=== PATIENT | male | born 1940 | race Caucasian/White ===

== ENCOUNTER 2016-11-22 18:19 | Inpatient (IN) | payer MEDICARE, OTHER ==
[~2016-11-22] VITALS: Ht 193 cm; Wt 111.6 kg
[2016-11-22] VITALS (7 sets, daily range): BP systolic 151–168; BP diastolic 80–100
[2016-11-22] MEDS ORDERED: AMIODARONE 150 MG/3 ML VIAL ONE (18:31)
[2016-11-22] MEDS ORDERED: ETOMIDATE 20 MG/10 ML VIAL. IV ONE (18:34)
[2016-11-22 18:45] LABS: POTASSIUM ISTAT 3.5 mmol/L (3.5-5.0)
[2016-11-22] MEDS ORDERED: AMIODARONE 900 MG in IV DEXTROSE 5% 500 ML IV PRN (18:45)
[2016-11-22] MEDS ORDERED: AMIODARONE 150 MG in IV DEXTROSE 5% 100 ML IV ONE (18:45)
[2016-11-22 18:47] LABS: BASO # 0.1 x10^3/uL (0.0-0.2); BASO % 1 % (0-3); EOS % 6 % (0-3); HEMOGLOBIN 15.1 g/dL (13.0-17.5); LYMPH # 2.6 x10^3/uL (1.0-4.8); LYMPH % 23 % (24-48); MEAN CORPUSCULAR HEMOGLOBIN 32 pg (25-35); MEAN CORPUSCULAR HGB CONC 34 g/dL (31-37); MEAN CORPUSCULAR VOLUME 92 fL (79-100); MONO % 11 % (0-9); NEUT % 60 % (31-73); PLATELET COUNT 235 x10^3/uL (140-400); RED BLOOD COUNT 4.79 x10^6/uL (4.30-5.70); RED CELL DISTRIBUTION WIDTH 13.2 % (11.5-14.5); WHITE BLOOD COUNT 11.5 x10^3/uL (4.0-11.0)
[2016-11-22 18:59] LABS: CREATININE 1.8 mg/dL (0.7-1.3); POTASSIUM 3.4 mmol/L (3.5-5.1)
[2016-11-22] MEDS ORDERED: dilTIAZem IV PUSH 25 MG/5 ML VIAL IVP ONE (19:00)
[2016-11-22 19:04] LABS: ALBUMIN 4.3 g/dL (3.4-5.0); ALBUMIN/GLOBULIN RATIO 1.4 (1.0-1.7); MAGNESIUM 2.6 mg/dL (1.8-2.4); TOTAL BILIRUBIN 1.1 mg/dL (0.2-1.0); TOTAL PROTEIN 7.3 g/dL (6.4-8.2)
[2016-11-22] MEDS ORDERED: HEPARIN for IV BOLUS 10,000 UNIT/10 ML VIAL. IV PRN (19:15)
[2016-11-22] MEDS ORDERED: ONDANSETRON PF 4 MG/2 ML VIAL. IV PRN (19:15)
[2016-11-22] MEDS ORDERED: IV NORMAL SALINE 1000ML BAG 1,000 ML IV ONE (19:15)
[2016-11-22] MEDS: HEPARIN 25,000UTS/500ML PREMIX 500 ML IV PRN (19:24)
--- NOTE | 2016-11-22 19:31 | ED.ADGEN ---
Past Medical History Past Medical History: Asthma, Diabetes-Type II, High Cholesterol Additional Past Medical Histor: AORTIC VALVE Past Surgical History: Cholecystectomy Additional Information: CIGAR (1 PER DAY) Alcohol Use: None Drug Use: None Adult General Chief Complaint Chief Complaint: Fatigue HPI HPI Patient is a 76 year old [place] history of hypertension and abdominal aneurysm who presents by private vehicle with fatigue and mild dyspnea. Triage EKG shows wide complex tachycardic rhythm, rate 179 concerning for V. tach versus other arrhythmia. Patient denies chest pain, back pain, abdominal pain, palpitations dizziness or lightheadedness. Symptoms began earlier this afternoon. Denies history of CAD, cardiac arrhythmia or cardiomyopathy. He is not on anticoagulation therapy. Patient noted to be hypertensive, and systolic of 200s over 110. Patient compliant with medical therapy. 6 accompanied at bedside by his spouse and daughter. Review of Systems Review of Systems Review symptoms as per history of present illness. Current Medications Current Medications Current Medications Medications (Trade) Dose Ordered Sig/Tonya Start Time Stop Time Status Last Admin Dose Admin Amiodarone HCl (Cordarone) 150 mg STK-MED ONCE 11/22/16 18:31 11/22/16 18:32 DC Amiodarone HCl 150 mg/Dextrose 103 ml @ 618 mls/hr 1X ONCE 11/22/16 18:45 11/22/16 18:54 DC 11/22/16 18:50 618 MLS/HR Amiodarone HCl 900 mg/Dextrose 518 ml @ 34.53 mls/ hr CONT PRN 11/22/16 18:45 Diltiazem HCl (Cardizem) 10 mg 1X ONCE 11/22/16 19:00 11/22/16 19:01 DC 11/22/16 18:50 10 MG Diltiazem HCl 125 mg/Dextrose 125 ml @ 0 mls/hr CONT PRN 11/22/16 19:00 11/22/16 18:56 5 MLS/HR Etomidate (Amidate) 20 mg STK-MED ONCE 11/22/16 18:34 11/22/16 18:35 DC Heparin Sodium (Porcine) (Heparin Sodium) 2,850 unit PRN Q6HRS PRN 11/22/16 19:15 Heparin Sodium/ Dextrose 500 ml @ 0 mls/hr CONT PRN 11/22/16 19:15 Ondansetron HCl (Zofran) 4 mg PRN Q8HRS PRN 11/22/16 19:15 11/23/16 19:14 UNV Sodium Chloride 1,000 ml @ 1,000 mls/hr 1X ONCE 11/22/16 19:15 11/22/16 20:14 11/22/16 19:11 1,000 MLS/HR Allergies Allergies Allergies Coded Allergies Type Severity Reaction Last Updated Verified No Known Drug Allergies 11/22/16 No Physical Exam Physical Exam Constitutional: Well developed, well nourished, no acute distress. HENT: Normocephalic, atraumatic, bilateral external ears normal, oropharynx moist, no oral exudates, nose normal. Eyes: PERRLA, EOMI, conjunctiva normal. Neck: Normal range of motion. Cardiovascular: Tachycardic. Negative Homans signs. Lungs & Thorax: Respirations nonlabored, lung sounds clear. Abdomen: Bowel sounds normal, soft, no tenderness. Skin: Warm, dry. Back: No tenderness, no CVA tenderness. Extremities: No tenderness, no edema Neurologic: Alert and oriented X 3, normal motor function, normal sensory function, no focal deficits noted. Psychologic: Affect normal, judgement normal, mood normal. Current Patient Data Vital Signs Vital Signs Date Time Temp Pulse Resp B/P (MAP) Pulse Ox O2 Delivery O2 Flow Rate FiO2 11/22/16 18:50 87 144/77 11/22/16 18:30 98.8 20 97 Room Air 98.8 Lab Values Laboratory Tests Test 11/22/16 18:28 11/22/16 18:32 11/22/16 18:41 White Blood Count 11.5 x10^3/uL (4.0-11.0) H Red Blood Count 4.79 x10^6/uL (4.30-5.70) Hemoglobin 15.1 g/dL (13.0-17.5) Hematocrit 44.0 % (39.0-53.0) Mean Corpuscular Volume 92 fL (79-100) Mean Corpuscular Hemoglobin 32 pg (25-35) Mean Corpuscular Hemoglobin Concent 34 g/dL (31-37) Red Cell Distribution Width 13.2 % (11.5-14.5) Platelet Count 235 x10^3/uL (140-400) Neutrophils (%) (Auto) 60 % (31-73) Lymphocytes (%) (Auto) 23 % (24-48) L Monocytes (%) (Auto) 11 % (0-9) H Eosinophils (%) (Auto) 6 % (0-3) H Basophils (%) (Auto) 1 % (0-3) Neutrophils # (Auto) 6.8 x10^3uL (1.8-7.7) Lymphocytes # (Auto) 2.6 x10^3/uL (1.0-4.8) Monocytes # (Auto) 1.2 x10^3/uL (0.0-1.1) H Eosinophils # (Auto) 0.7 x10^3/uL (0.0-0.7) Basophils # (Auto) 0.1 x10^3/uL (0.0-0.2) Sodium Level 144 mmol/L (136-145) Potassium Level 3.4 mmol/L (3.5-5.1) L Chloride Level 103 mmol/L (98-107) Carbon Dioxide Level 31 mmol/L (21-32) Anion Gap 10 (6-14) 16 mmol/L (6-14) H Blood Urea Nitrogen 30 mg/dL (8-26) H Creatinine 1.8 mg/dL (0.7-1.3) H Estimated GFR (Cockcroft-Gault) 37.0 BUN/Creatinine Ratio 17 (6-20) Glucose Level 145 mg/dL (70-99) H 145 mg/dL (70-99) H Calcium Level 9.0 mg/dL (8.5-10.1) Magnesium Level 2.6 mg/dL (1.8-2.4) H Total Bilirubin 1.1 mg/dL (0.2-1.0) H Aspartate Amino Transferase (AST) 17 U/L (15-37) Alanine Aminotransferase (ALT) 26 U/L (16-63) Alkaline Phosphatase 62 U/L (46-116) Total Protein 7.3 g/dL (6.4-8.2) Albumin 4.3 g/dL (3.4-5.0) Albumin/Globulin Ratio 1.4 (1.0-1.7) POC Troponin I 0.00 ng/ml (<0.08) POC Hemoglobin 14.6 g/dL (14-18) POC Hematocrit 43 % (37-52) POC Sodium 140 mmol/L (135-145) POC Potassium 3.5 mmol/L (3.5-5.0) POC Chloride 101 mmol/L (98-110) POC Total CO2 27 mmol/L (23-32) POC Blood Urea Nitrogen 29 mg/dL (8-26) H POC Creatinine 1.7 mg/dL (0.5-1.4) H POC Ionized Calcium (Jovani) 1.10 mmol/L (1.13-1.32) L Laboratory Tests 11/22/16 18:28 Laboratory Tests 11/22/16 18:28 11/22/16 18:41 EKG EKG [EKG #1, irregular rhythm with complex rhythm, rate 179, QTC 502. Rhythm consistent with A. fib with RVR versus V. tach per Dr. Lindsey. EKG #2, EKG #2 normal sinus rhythm, rate 95, frequent PVCs, no acute ST-T wave changes, LVH, left axis deviation. QTc 451. Radiology/Procedures Radiology/Procedures [Chest x-ray: No acute cardiopulmonary disease preliminary view.] Course & Med Decision Making Course & Med Decision Making Pertinent Labs and Imaging studies reviewed. (See chart for details) [Patient hypertensive with wide complex tachyarrhythmia initially concerning for V. tach. Tachyarrhythmia oscillates with no sinus rhythm ith frequent PVCs. Patient given amiodarone 150 mg bolus x2 with limited response. Patient placed on amiodarone drip. EKGs, labs reviewed in detail with Dr. Lindsey on-call for cardiology. Recommendations are for Cardizem dose, drip, heparin drip, and continue amiodarone which is already started. Tachyarrhythmia arrhythmia responsive to Cardizem, converting patient to sinus rhythm. Blood pressure improved. IVF given for hydration. Dr. Rogers to admit. Abraham Disclaimer Dragon Disclaimer This electronic medical record was generated, in whole or in part, using a voice recognition dictation system. MORRIS NATARAJAN DO Nov 22, 2016 19:31
[2016-11-22] MEDS ORDERED: NON FORMULARY ITEM (Pravastatin Sodium 1 TAB) PO SCH (21:00)
[2016-11-22] MEDS ORDERED: HYDR-2869 PO (21:52)
[2016-11-22] MEDS ORDERED: PRAV20TA2 PO (21:53)
[2016-11-22] MEDS ORDERED: VIT1CAPS12 PO (21:53)
[2016-11-22] MEDS: MULTIVITAMIN I-VITE TABLET. PO SCH (22:43)
[2016-11-22] MEDS: ATORVASTATIN CALCIUM 10 MG TABLET. PO SCH (22:44)
[2016-11-23] VITALS (17 sets, daily range): BP systolic 132–176; BP diastolic 69–99
[2016-11-23] MEDS ORDERED: HYDROcodone/APAP 5/325MG 1 TAB TABLET PO PRN (00:15)
[2016-11-23] MEDS ORDERED: ACETAMINOPHEN 325 MG TABLET. PO PRN (00:15)
[2016-11-23] MEDS ORDERED: ONDANSETRON PF 4 MG/2 ML VIAL. IV PRN (00:15)
[2016-11-23] MEDS ORDERED: hydrALAZINE 20 MG/ML VIAL. IVP PRN ×2 (00:15→12:00)
[2016-11-23] MEDS ORDERED: ALBUTEROL SULFATE 2.5 MG/3 ML NEBU. NEB PRN (00:15)
[2016-11-23 06:27] LABS: BASO # 0.1 x10^3/uL (0.0-0.2); BASO % 1 % (0-3); EOS % 7 % (0-3); HEMATOCRIT 43.3 % (39.0-53.0); HEMOGLOBIN 15.4 g/dL (13.0-17.5); LYMPH # 1.6 x10^3/uL (1.0-4.8); LYMPH % 21 % (24-48); MEAN CORPUSCULAR HEMOGLOBIN 32 pg (25-35); MEAN CORPUSCULAR HGB CONC 36 g/dL (31-37); MEAN CORPUSCULAR VOLUME 90 fL (79-100); MONO % 10 % (0-9); NEUT % 62 % (31-73); PLATELET COUNT 193 x10^3/uL (140-400); RED CELL DISTRIBUTION WIDTH 12.7 % (11.5-14.5)
[2016-11-23 06:40] LABS: ALBUMIN 4.2 g/dL (3.4-5.0); ALBUMIN/GLOBULIN RATIO 1.4 (1.0-1.7); CALCIUM 8.9 mg/dL (8.5-10.1); CREATININE 1.4 mg/dL (0.7-1.3); GFR 49.4; TOTAL BILIRUBIN 1.4 mg/dL (0.2-1.0); TOTAL PROTEIN 7.1 g/dL (6.4-8.2)
--- NOTE | 2016-11-23 06:40 | ACF ---
Admission Forms Criteria CARDIOLOGY GRG Clinical Indications for Admission to Inpatient Care ( Place 'X' for any and all applicable criteria): Hospital admission is needed for appropriate care of the patient because of ANY ONE of the following (1): [ ] I. Hemodynamic instability as indicated by ALL of the following (1)(2)(3) (4)(5) [ ]a) Vital signs or other findings not as expected for chronic patient condition or baseline [ ]b) Instability indicated by ANY ONE of the following: [ ]i) Hypotension [ ]ii) Symptomatic Tachycardia unresponsive to treatment ( e.g., analgesia, fluids, sedation as indicated) [ ]iii) Inadequate perfusion indicated by ANY ONE of the following: [ ] 1) Lactic acidosis (> 2 mmol/L) [ ] 2) New abnormal capillary refill (> 3 seconds) [ ] 3) Reduced urine output [ ] 4) New altered mental status [ ]iv) Orthostatic vital sign changes unresponsive to treatment (e.g., fluids) [ ]v) IV inotropic or vasopressor medication required to maintain adequate blood pressure or perfusion [ ] II. Severe heart failure as indicated by ANY ONE of the following(17)(18) [ ]a) Respiratory distress [ ]b) Hypotension [ ]c) Anasarca (refractory to outpatient therapy) [ ]d) Cardiac arrhythmias of immediate concern [ ]e) Myocardial ischemia [ ] III. Cardiac arrhythmias or findings of immediate concern indicated by ANY ONE of the following (19)(20): [ ] a) Heart rhythms that are inherently dangerous or unstable indicated by ANY ONE of the following (21)(22)(23): [ ] i) Resuscitated ventricular fibrillation or cardiac arrest [ ] ii) Ventricular escape rhythm [ ] iii) Sustained ventricular tachycardia (30 seconds or more of ventricular rhythm at greater than 100 beats per minute) [ ] iv) Nonsustained ventricular tachycardia and ANY ONE of the following: [ ] 1) Suspected cardiac ischemia as cause or consequence of ventricular tachycardia [ ] 2) In setting of acute myocarditis [ ] b) Unstable cardiac conduction defects indicated by ANY ONE of the following(23)(24)(25) [ ] i) Type II second-degree atrioventricular block [ ]ii) Third-degree atrioventricular block [ ]iii) New-onset left bundle branch block with suspected myocardial ischemia [ ]c) Any heart rhythm and ANY ONE of the following (21)(22)(26)(27) (28) [ ] i) Continuous long-term ECG monitoring needed (e.g., initiation of drug requiring monitoring for more than 24 hours) [ ] ii) Patient has automatic implanted cardioverter defibrillator that is repeatedly firing, malfunctioning, or in need of immediate adjustment of settings beyond the scope of ambulatory or observation care [ ]d) Heart rhythms of concern due to ANY ONE of the following: [ ] i) Hypotension [ ] ii) Respiratory distress [ ] iii) Association with other significant symptoms (e.g., bradycardia with syncope or ongoing dizziness, supraventricular tachycardia with chest pain (14)(15)(17) [ ] IV. Monitoring for cardiac contusion beyond the scope of observation care needed [A](30)(31)(32) [ ] V. Surgical or device complication (e.g., valve replacement complication , pacemaker dysfunction) (35)(41)(44)(45)(46) [ ] . Inpatient palliative care needed. [B](49) Also use Inpatient Palliative Care Criteria [ ] VII. Nonbacterial thrombotic (marantic) endocarditis (36)(43)(47)(48) [X] VIII. Cardiology condition, symptom, or finding for which emergency and observation care has failed or are not considered appropriate. [ ] IX. Acute valvular disease requiring inpatient as indicated by ANY ONE of the following (41) [ ]a) Acute valvular regurgitation (42) [ ]b) Noninfectious valvulitis (43) [ ]c) Obstructive valve thrombosis [ ]d) Paravalvular leak [ ]e) Other significant valvular disorder remaining after emergency or observation level of care (as appropriate) [ ]X. Pericardial disease requiring inpatient treatment as indicated by ANY ONE of the following (33)(34)(35)(36)(37) [ ]a) Suspected tamponade (38)(39)(40) [ ]b) Hemopericardium [ ]c) Other significant pericardial disorder remaining after emergency or observation level of care (as appropriate) [ ] XI. Cardiac ischemia beyond scope of emergency and observation care. [ ] XII. Hypertension requiring inpatient treatment as indicated by ANY ONE of the following (6)(7)(8) [ ]a) SBP greater than 220 mm Hg or DBP greater than 120 mmHg despite treatment [ ]b) SBP greater than 140 mm Hg or DBP greater than 100 mm Hg with evidence of acute end organ damage as indicated by ANY ONE of the following [ ] i) Encephalopathy [ ] ii) Acute renal failure as indicated by new onset of ANY ONE of the following (9)(10)(11)(12)(13) [ ]1) 3-fold rise in serum creatinine from baseline [ ]2) Serum creatinine greater than 4 mg/dL ( 354 micromoles/L) with acute rise greater than 0.5 mg/dL (44.2 micromoles/L) [ ]3) Reduction of more than 75% in estimated glomerular filtration rate from baseline [ ]4) Estimated glomerular filtration rate less than 35 mL/min/1.73m2 (0.59 mL/sec/1.73m2) in child up to 18 years of age [ ]5) Cessation of urine output indicated by ALL of the following [ ]A. Adequate volume status [ ]B. Inadequate urine output as indicated by ANY ONE of the following [ ]a. Urine output less than 0.3 mL/kg/hr for 24 hours [ ]b. Anuria (urine output less than 0.1 mL/kg/hr) for 12 hours [ ] iii) Aortic dissection [ ] iv) Myocardial Ischemia [ ] v) Left ventricular heart failure [ ]vi) Retinal Hemorrhage [ ]vii) Other significant finding [ ]c) Hypertension in child requiring inpatient treatment as indicated by ALL of the following(14)(15)(16) [ ] i) Outpatient treatment not effective, not available, or not appropriate [ ]ii) SBP or DBP greater than 95th percentile for age [ ]iii) Evidence of acute end organ damage as indicated by ANY ONE of the following [ ]1) Altered mental status [ ]2) Acute renal failure as indicated by new onset of ANY ONE of the following(9)(10)(11)(12)(13) [ ]A. 3-fold rise in serum creatinine from baseline [ ]B. Serum creatinine greater than 4 mg/dL (354 micromoles/L) with acute rise greater than 0.5 mg/dL (44.2 micromoles/L) [ ]C. Reduction of more than 75% in estimated glomerular filtration rate from baseline [ ]D. Estimated glomerular filtration rate less than 35 mL/min/1.73m2 (0.59 mL/sec/1.73m2) in child up to 18 years of age [ ]E. Cessation of urine output indicated by ALL of the following [ ]a. Adequate volume status [ ]b. Inadequate urine output as indicated by ANY ONE of the following [ ]i) Urine output less than 0.3 mL/kg/hr for 24 hours [ ]ii) Anuria ( urine output less than 0.1 mL/kg/hr) for 12 hours [ ]3) Severe headache [ ]4) Visual disturbance [ ]5) Retinal hemorrhage [ ]6) Other significant finding [ ]XIII. Complications of transplanted heart indicated by ANY ONE of the following(61): [ ]a) Acute graft rejection requiring inpatient management (eg, intravenous immunosuppression)(62)(63) [ ]b) Acute graft heart failure indicated by ANY ONE of the following(64): [ ]i) Hemodynamic instability [ ]ii) Cardiac arrhythmias of immediate concern [ ]iii) Pulmonary edema that is very severe (eg, mechanical ventilation needed, imminent or likely, need for 100% oxygen to keep oxygen saturation above 90%) [ ]iv) Pulmonary edema that is persistent as indicated by ALL of the following: [ ]1) New need for oxygen therapy to keep oxygen saturation above 90% (or increased FiO2 need from baseline) [ ]2) Has not improved sufficiently with emergency department or observation care IV diuretics or other heart failure treatments[E] [ ]v) Altered mental status that is severe or persistent [ ]vi) Increased creatinine (new on laboratory test) with reduction of more than 50% in estimated glomerular filtration rate from baseline [ ]vii) Progressively (ongoing) rising creatinine (known from past laboratory test) with reduction of more than 25% in estimated glomerular filtration rate from baseline [ ]viii) Acute renal failure [ ]ix) Acute peripheral ischemia (eg, examination shows pulseless, cool, mottled, or cyanotic extremity) [ ]x) Pulmonary artery catheter monitoring needed [ ]xi) Other sign or symptom of heart failure requiring inpatient treatment (ie, too severe or not responsive to outpatient and observation care treatment) [ ]c) Infection requiring inpatient management (eg, Hemodynamic instability, need for intravenous antimicrobial treatment)(66)(67)(68)(69)(70) [ ]d) Cardiac allograft vasculopathy requiring inpatient management ( eg evidence of cardiac ischemia)(71) [ ]e) Other complication of transplanted heart (eg, stroke, severe pulmonary hypertension, severe valvular dysfunction) requiring inpatient management(72) The original [facility] content created by [facility] has been revised. The portions of the content which have been revised are identified through the use of italic text or in bold, and [facility] has neither reviewed nor approved the modified material. All other unmodified content is copyright [facility]. Please see references footnoted in the original [facility] edition 2016 Admission Criteria Met?: Yes UDAY DECKER Nov 23, 2016 06:40
[2016-11-23] MEDS ORDERED: FEXO180T16 PO (06:42)
[2016-11-23] MEDS ORDERED: GLUC1CAP48 PO (06:42)
[2016-11-23] MEDS ORDERED: FLUT1DIS3 IH (06:42)
[2016-11-23] MEDS ORDERED: TRIA1CAP3 PO (06:42)
[2016-11-23] MEDS ORDERED: AMLO10TA2 PO (06:42)
[2016-11-23] MEDS ORDERED: ATEN100T PO (06:42)
[2016-11-23] MEDS ORDERED: TELM80TA PO (06:42)
[2016-11-23] MEDS ORDERED: CLON0.3T PO (06:42)
[2016-11-23] MEDS ORDERED: MULT-252 PO (06:42)
[2016-11-23] MEDS ORDERED: POTA20TA82 PO (06:42)
[2016-11-23] MEDS ORDERED: ALBU2.5V14 NEB (06:42)
[2016-11-23] MEDS ORDERED: METF-620 PO (06:42)
[2016-11-23] MEDS ORDERED: MOME17SP NS (06:42)
[2016-11-23] MEDS: MULTIVITAMIN I-VITE TABLET. PO SCH ×2 (08:17→20:59)
--- NOTE | 2016-11-23 08:55 | RAD ---
EXAM: Chest one view. HISTORY: Chest pain. COMPARISON: None. FINDINGS: A frontal view of the chest is obtained. There are no confluent infiltrates. There is no pneumothorax or pleural effusion. The heart is moderately enlarged. There are atherosclerotic calcifications of the aorta. IMPRESSION: 1. Moderate cardiomegaly.
--- NOTE | 2016-11-23 10:42 | PDOC2 ---
EMA LANDRY TECHNICAL SERVICES MANAGER 11/23/16 1042: CARDIAC CONSULT DATE OF CONSULT Date of Consult DATE: 11/23/16 TIME: 10:36 REASON FOR CONSULT Reason for Consult: Arrhythmia REFERRING PHYSICIAN Referring Physician: Luisito SOURCE Source: Chart review HISTORY OF PRESENT ILLNESS HISTORY OF PRESENT ILLNESS This is a pleasant 76 yo male admitted for complains of chest pain. Pt came from [place] and was visiting her daughter here. He typically sees a labor relations consultant over there. This started before noon yesterday intermittent then accelerated around 2 PM. At that time the pain was more severe with dull nagging discomfort 7 out of 10 pain scale that radiated midback. 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 His CP was on and off sometimes lasting about 30 minutes then became constant. No associated nausea, diaphoresis nor sensation of palpitations. No significant SOA as well. He does experience some dyspnea on exertion prior to this happening and this has been happening intermittently for a while. Denies any prior CAD and had a stress test 09/2015 and was told to be normal. He also had TTE 09/2016 and no changes as told to him by his labor relations consultant. PAST MEDICAL HISTORY Cardiovascular: HTN, Hyperlipidemia, Valve insufficiency Pulmonary: Asthma, Pneumonia CENTRAL NERVOUS SYSTEM: Other (No pertinent history) GI: GERD Heme/Onc: No pertinent hx Hepatobiliary: No pertinent hx Psych: No pertinent hx Musculoskeletal: Osteoarthritis Rheumatologic: No pertinent hx Infectious disease: No pertinent hx ENT: No pertinent hx Renal/: Chronic renal insuff Endocrine: Diabetes (2) Dermatology: No pertinent hx PAST SURGICAL HISTORY Past Surgical History: Cholecystectomy FAMILY HISTORY Family History: Heart Disease SOCIAL HISTORY Smoke: # pack years (1 cigar a day) ALCOHOL: occassional Drugs: None Lives: with Family CURRENT MEDICATIONS CURRENT MEDICATIONS Current Medications Medications (Trade) Dose Ordered Sig/Tonya Route PRN Reason Start Time Stop Time Status Last Admin Dose Admin Amiodarone HCl 150 mg/Dextrose 103 ml @ 618 mls/hr 1X ONCE IV 11/22/16 18:45 11/22/16 18:54 DC 11/22/16 18:50 Diltiazem HCl (Cardizem) 10 mg 1X ONCE IVP 11/22/16 19:00 11/22/16 19:01 DC 11/22/16 18:50 Diltiazem HCl 125 mg/Dextrose 125 ml @ 0 mls/hr CONT PRN IV SEE I/O RECORD 11/22/16 19:00 11/23/16 09:58 Sodium Chloride 1,000 ml @ 1,000 mls/hr 1X ONCE IV 11/22/16 19:15 11/22/16 20:14 DC 11/22/16 19:11 Heparin Sodium/ Dextrose 500 ml @ 0 mls/hr CONT PRN IV SEE I/O RECORD 11/22/16 19:15 11/22/16 19:24 Hydralazine HCl (Apresoline) 50 mg TID PO 11/22/16 23:00 11/23/16 08:17 Atorvastatin Calcium (Lipitor) 5 mg QHS PO 11/22/16 23:00 11/22/16 22:44 Multivitamins/ Minerals (I-Angy) 1 tab BID PO 11/22/16 23:00 11/23/16 08:17 ALLERGIES ALLERGIES: Coded Allergies: apple (Verified Allergy, Severe, Swelling, 11/22/16) APPLE PEELS monosodium glutamate (Verified Allergy, Severe, Anaphylaxis, 11/22/16) ROS Review of System 14 point ROS evaluated with pertinent positives noted per HPI PHYSICAL EXAM General: Alert, Oriented X3, Cooperative, No acute distress HEENT: Atraumatic, Mucous membr. moist/pink Lungs: Clear to auscultation Heart: Regular rate (SR with intermittent PVCs), Normal S1, Normal S2 Abdomen: Soft, No tenderness Extremities: No cyanosis, Other (trace LE edema) Skin: No breakdown, No significant lesion Neuro: Normal speech, Sensation intact Psych/Mental Status: Mental status NL, Mood NL MUSCULOSKELETAL: No joint tenderness, Osteoarthritic changes both hands VITALS VITALS Vital Signs Date Time Temp Pulse Resp B/P (MAP) Pulse Ox O2 Delivery O2 Flow Rate FiO2 11/23/16 10:06 69 21 142/76 (98) 98 Nasal Cannula 2.0 11/23/16 07:00 98.2 98.2 LABS Lab: Laboratory Tests Test 11/22/16 18:28 11/22/16 18:32 11/22/16 18:41 11/23/16 00:45 White Blood Count 11.5 x10^3/uL (4.0-11.0) Red Blood Count 4.79 x10^6/uL (4.30-5.70) Hemoglobin 15.1 g/dL (13.0-17.5) Hematocrit 44.0 % (39.0-53.0) Mean Corpuscular Volume 92 fL (79-100) Mean Corpuscular Hemoglobin 32 pg (25-35) Mean Corpuscular Hemoglobin Concent 34 g/dL (31-37) Red Cell Distribution Width 13.2 % (11.5-14.5) Platelet Count 235 x10^3/uL (140-400) Neutrophils (%) (Auto) 60 % (31-73) Lymphocytes (%) (Auto) 23 % (24-48) Monocytes (%) (Auto) 11 % (0-9) Eosinophils (%) (Auto) 6 % (0-3) Basophils (%) (Auto) 1 % (0-3) Neutrophils # (Auto) 6.8 x10^3uL (1.8-7.7) Lymphocytes # (Auto) 2.6 x10^3/uL (1.0-4.8) Monocytes # (Auto) 1.2 x10^3/uL (0.0-1.1) Eosinophils # (Auto) 0.7 x10^3/uL (0.0-0.7) Basophils # (Auto) 0.1 x10^3/uL (0.0-0.2) Sodium Level 144 mmol/L (136-145) Potassium Level 3.4 mmol/L (3.5-5.1) Chloride Level 103 mmol/L (98-107) Carbon Dioxide Level 31 mmol/L (21-32) Anion Gap 10 (6-14) 16 mmol/L (6-14) Blood Urea Nitrogen 30 mg/dL (8-26) Creatinine 1.8 mg/dL (0.7-1.3) Estimated GFR (Cockcroft-Gault) 37.0 BUN/Creatinine Ratio 17 (6-20) Glucose Level 145 mg/dL (70-99) 145 mg/dL (70-99) Calcium Level 9.0 mg/dL (8.5-10.1) Magnesium Level 2.6 mg/dL (1.8-2.4) Total Bilirubin 1.1 mg/dL (0.2-1.0) Aspartate Amino Transf (AST/SGOT) 17 U/L (15-37) Alanine Aminotransferase (ALT/SGPT) 26 U/L (16-63) Alkaline Phosphatase 62 U/L (46-116) Total Protein 7.3 g/dL (6.4-8.2) Albumin 4.3 g/dL (3.4-5.0) Albumin/Globulin Ratio 1.4 (1.0-1.7) Bedside Troponin I 0.00 ng/ml (<0.08) Bedside Hemoglobin 14.6 g/dL (14-18) Bedside Hematocrit 43 % (37-52) Bedside Sodium 140 mmol/L (135-145) Bedside Potassium 3.5 mmol/L (3.5-5.0) Bedside Chloride 101 mmol/L (98-110) Bedside Total CO2 27 mmol/L (23-32) Bedside Blood Urea Nitrogen 29 mg/dL (8-26) Bedside Creatinine 1.7 mg/dL (0.5-1.4) Bedside Ionized Calcium (Jovani) 1.10 mmol/L (1.13-1.32) Heparin Anti-Xa Act, Unfractionated 0.21 IU/mL (0.30-0.70) Troponin I Quantitative < 0.017 ng/mL (0.000-0.055) Test 11/23/16 06:11 White Blood Count 8.0 x10^3/uL (4.0-11.0) Red Blood Count 4.80 x10^6/uL (4.30-5.70) Hemoglobin 15.4 g/dL (13.0-17.5) Hematocrit 43.3 % (39.0-53.0) Mean Corpuscular Volume 90 fL (79-100) Mean Corpuscular Hemoglobin 32 pg (25-35) Mean Corpuscular Hemoglobin Concent 36 g/dL (31-37) Red Cell Distribution Width 12.7 % (11.5-14.5) Platelet Count 193 x10^3/uL (140-400) Neutrophils (%) (Auto) 62 % (31-73) Lymphocytes (%) (Auto) 21 % (24-48) Monocytes (%) (Auto) 10 % (0-9) Eosinophils (%) (Auto) 7 % (0-3) Basophils (%) (Auto) 1 % (0-3) Neutrophils # (Auto) 5.0 x10^3uL (1.8-7.7) Lymphocytes # (Auto) 1.6 x10^3/uL (1.0-4.8) Monocytes # (Auto) 0.8 x10^3/uL (0.0-1.1) Eosinophils # (Auto) 0.5 x10^3/uL (0.0-0.7) Basophils # (Auto) 0.1 x10^3/uL (0.0-0.2) Heparin Anti-Xa Act, Unfractionated 0.33 IU/mL (0.30-0.70) Sodium Level 143 mmol/L (136-145) Potassium Level 3.0 mmol/L (3.5-5.1) Chloride Level 104 mmol/L (98-107) Carbon Dioxide Level 30 mmol/L (21-32) Anion Gap 9 (6-14) Blood Urea Nitrogen 21 mg/dL (8-26) Creatinine 1.4 mg/dL (0.7-1.3) Estimated GFR (Cockcroft-Gault) 49.4 BUN/Creatinine Ratio 15 (6-20) Glucose Level 131 mg/dL (70-99) Calcium Level 8.9 mg/dL (8.5-10.1) Total Bilirubin 1.4 mg/dL (0.2-1.0) Aspartate Amino Transf (AST/SGOT) 16 U/L (15-37) Alanine Aminotransferase (ALT/SGPT) 25 U/L (16-63) Alkaline Phosphatase 58 U/L (46-116) Total Protein 7.1 g/dL (6.4-8.2) Albumin 4.2 g/dL (3.4-5.0) Albumin/Globulin Ratio 1.4 (1.0-1.7) HEART CATH HEART CATH 1. Chest pain: Arrhythmia induced, probable ACS. Initial troponin normal 2. Tachyarrhythmia: EKG with appearance of AFIB RVR (new onset) with aberrancy, currently paroxysms and presently SR with frequent PVCs. 3. JENNIFER on CKD: likely stage 3. better. 4. Malignant HTN: multiple antiHTN. Better currently. 5. Hx of Aortic insufficiency, mod TAA, small AAA: last CT 04/2016 6. Hypokalemia: replace 7. DM2/HLP 8. Tobaccoism: cigar use Recommendations 1. TTE, Continue with troponin series, repeat EKG 2. Concerning for ischemia with intermittent episodes of ZAZUETA in addition to recent acute event. [facility] discussed, risks and benefits, and agreeable for Fri. 3. Will try to obtain cardiology records. 4. DC amlodipine, convert cardizem drip to po 120 mg CD, change amiodarone to po after protocol. 5. ASA, continue heparin drip. 6. Replace K. Hold metformin, sliding scale indulin per PCP 7. Renal duplex 8. TSH, lipid panel. ELLIOTT KNIGHT MD 11/23/16 1550: CARDIAC CONSULT ALLERGIES ALLERGIES: Coded Allergies: apple (Verified Allergy, Severe, Swelling, 11/22/16) APPLE PEELS monosodium glutamate (Verified Allergy, Severe, Anaphylaxis, 11/22/16) ASSESSMENT/PLAN ASSESSMENT/PLAN Patient seen and examined. Agree with [employer]AYER's assessment and plan. Patient admitted with new onset atrial fibrillation with rapid ventricular response. Presently back in sinus rhythm. Change Cardizem and amiodarone gtt's to by mouth. Continue heparin per protocol for now and change to eliquis prior to discharge. Check 2-D echo to assess LV systolic function. Patient had chest pain on presentation and has been having recurrent retrosternal chest pain on exertion recently. We will proceed with cardiac catheterization for definitive evaluation on Friday. Risks and benefits were explained. Accelerated hypertension better controlled since admission. Check renal arterial duplex scan to rule out renovascular hypertension since patient is on multiple antihypertensive agents. Thank you for your consultation. Problems: EMA LANDRY APRN Nov 23, 2016 10:42 ELLIOTT KNIGHT MD Nov 23, 2016 15:50
[2016-11-23] MEDS ORDERED: POTASSIUM CHLORIDE 20 MEQ TABLET.ER. PO ONE (11:15)
--- NOTE | 2016-11-23 11:45 | PDOC1 ---
History and Physical Past Medical History Pulmonary: Pneumonia Current Problem List Problem List Problems Medical Problems: (1) Atrial fibrillation with RVR Status: Acute Current Medications Current Medications Current Medications Medications (Trade) Dose Ordered Sig/Tonya Start Time Stop Time Status Last Admin Dose Admin Acetaminophen (Tylenol) 325 mg PRN Q6HRS PRN 11/23/16 00:15 Acetaminophen/ Hydrocodone Bitart (Lortab 5/325) 1 tab PRN Q6HRS PRN 11/23/16 00:15 Albuterol Sulfate (Ventolin Neb Soln) 2.5 mg Q6HRS 11/23/16 12:00 Amiodarone HCl (Cordarone) 150 mg STK-MED ONCE 11/22/16 18:31 11/22/16 18:32 DC Amiodarone HCl 150 mg/Dextrose 103 ml @ 618 mls/hr 1X ONCE 11/22/16 18:45 11/22/16 18:54 DC 11/22/16 18:50 618 MLS/HR Amiodarone HCl 900 mg/Dextrose 518 ml @ 34.53 mls/ hr CONT PRN 11/22/16 18:45 Atorvastatin Calcium (Lipitor) 5 mg QHS 11/22/16 23:00 11/22/16 22:44 5 MG Budesonide (Pulmicort) 0.5 mg BID 11/23/16 12:00 Diltiazem HCl (Cardizem) 10 mg 1X ONCE 11/22/16 19:00 11/22/16 19:01 DC 11/22/16 18:50 10 MG Diltiazem HCl 125 mg/Dextrose 125 ml @ 0 mls/hr CONT PRN 11/22/16 19:00 11/23/16 09:58 5 MLS/HR Etomidate (Amidate) 20 mg STK-MED ONCE 11/22/16 18:34 11/22/16 18:35 DC Fluticasone Propionate (Flonase) 2 spray PRN DAILY PRN 11/24/16 09:00 Heparin Sodium (Porcine) (Heparin Sodium) 2,850 unit PRN Q6HRS PRN 11/22/16 19:15 Heparin Sodium/ Dextrose 500 ml @ 0 mls/hr CONT PRN 11/22/16 19:15 11/22/16 19:24 7.39 MLS/HR Hydralazine HCl (Apresoline) 10 mg PRN Q4HRS PRN 11/23/16 00:15 Multivitamins/ Minerals (I-Angy) 1 tab BID 11/22/16 23:00 11/23/16 08:17 1 TAB Non-Formulary Medication 1 tab QHS 11/22/16 21:00 UNV Ondansetron HCl (Zofran) 4 mg PRN Q8HRS PRN 11/23/16 00:15 Potassium Chloride (Klor-Con) 40 meq BID94 11/23/16 11:45 11/23/16 18:00 Sodium Chloride 1,000 ml @ 1,000 mls/hr 1X ONCE 11/22/16 19:15 11/22/16 20:14 DC 11/22/16 19:11 1,000 MLS/HR Allergies Allergies Allergies Coded Allergies Type Severity Reaction Last Updated Verified apple Allergy Severe Swelling 11/22/16 Yes monosodium glutamate Allergy Severe Anaphylaxis 11/22/16 Yes ROS Review of System CONSTITUTIONAL: No fever or chills EYES: No recent changes SKIN: No rash or itching CARDIOVASCULAR: chest pain, DIZZINESS, palpitations, or BUT NO edema RESPIRATORY: No SOB or cough GASTROINTESTINAL: No nausea, vomiting or abdominal pain NEUROLOGICAL: No headaches or weakness ENDOCRINE: No cold or heat intolerance GENITOURINARY: No urgency or frequency of urination MUSCULOSKELETAL: No back pain or joint pain LYMPHATICS: No enlarged lymph nodes PSYCHIATRIC: No anxiety or depression Physical Exam Physical Exam GEN.: No apparent distress. Alert and oriented. HEENT: Head is normocephalic, atraumatic NECK: Supple. No jvd LUNGS: Clear to auscultation. normal airflow. HEART: RRR, S1, S2 present. Peripheral pulses intact ABDOMEN: Soft, nontender. Positive bowel sounds. EXTREMITIES: Without any cyanosis. NEUROLOGIC: Normal speech, normal tone PSYCHIATRIC: Normal affect, normal mood. SKIN: No ulcerations Vitals Vitals Vital Signs Date Time Temp Pulse Resp B/P (MAP) Pulse Ox O2 Delivery O2 Flow Rate FiO2 11/23/16 11:08 97.9 71 20 146/73 (97) 98 Nasal Cannula 2.0 97.9 Labs Labs Laboratory Tests Test 11/22/16 18:28 11/22/16 18:32 11/22/16 18:41 11/23/16 00:45 White Blood Count 11.5 x10^3/uL (4.0-11.0) Red Blood Count 4.79 x10^6/uL (4.30-5.70) Hemoglobin 15.1 g/dL (13.0-17.5) Hematocrit 44.0 % (39.0-53.0) Mean Corpuscular Volume 92 fL (79-100) Mean Corpuscular Hemoglobin 32 pg (25-35) Mean Corpuscular Hemoglobin Concent 34 g/dL (31-37) Red Cell Distribution Width 13.2 % (11.5-14.5) Platelet Count 235 x10^3/uL (140-400) Neutrophils (%) (Auto) 60 % (31-73) Lymphocytes (%) (Auto) 23 % (24-48) Monocytes (%) (Auto) 11 % (0-9) Eosinophils (%) (Auto) 6 % (0-3) Basophils (%) (Auto) 1 % (0-3) Neutrophils # (Auto) 6.8 x10^3uL (1.8-7.7) Lymphocytes # (Auto) 2.6 x10^3/uL (1.0-4.8) Monocytes # (Auto) 1.2 x10^3/uL (0.0-1.1) Eosinophils # (Auto) 0.7 x10^3/uL (0.0-0.7) Basophils # (Auto) 0.1 x10^3/uL (0.0-0.2) Sodium Level 144 mmol/L (136-145) Potassium Level 3.4 mmol/L (3.5-5.1) Chloride Level 103 mmol/L (98-107) Carbon Dioxide Level 31 mmol/L (21-32) Anion Gap 10 (6-14) 16 mmol/L (6-14) Blood Urea Nitrogen 30 mg/dL (8-26) Creatinine 1.8 mg/dL (0.7-1.3) Estimated GFR (Cockcroft-Gault) 37.0 BUN/Creatinine Ratio 17 (6-20) Glucose Level 145 mg/dL (70-99) 145 mg/dL (70-99) Calcium Level 9.0 mg/dL (8.5-10.1) Magnesium Level 2.6 mg/dL (1.8-2.4) Total Bilirubin 1.1 mg/dL (0.2-1.0) Aspartate Amino Transf (AST/SGOT) 17 U/L (15-37) Alanine Aminotransferase (ALT/SGPT) 26 U/L (16-63) Alkaline Phosphatase 62 U/L (46-116) Total Protein 7.3 g/dL (6.4-8.2) Albumin 4.3 g/dL (3.4-5.0) Albumin/Globulin Ratio 1.4 (1.0-1.7) Bedside Troponin I 0.00 ng/ml (<0.08) Bedside Hemoglobin 14.6 g/dL (14-18) Bedside Hematocrit 43 % (37-52) Bedside Sodium 140 mmol/L (135-145) Bedside Potassium 3.5 mmol/L (3.5-5.0) Bedside Chloride 101 mmol/L (98-110) Bedside Total CO2 27 mmol/L (23-32) Bedside Blood Urea Nitrogen 29 mg/dL (8-26) Bedside Creatinine 1.7 mg/dL (0.5-1.4) Bedside Ionized Calcium (Jovani) 1.10 mmol/L (1.13-1.32) Heparin Anti-Xa Act, Unfractionated 0.21 IU/mL (0.30-0.70) Troponin I Quantitative < 0.017 ng/mL (0.000-0.055) Test 11/23/16 06:11 White Blood Count 8.0 x10^3/uL (4.0-11.0) Red Blood Count 4.80 x10^6/uL (4.30-5.70) Hemoglobin 15.4 g/dL (13.0-17.5) Hematocrit 43.3 % (39.0-53.0) Mean Corpuscular Volume 90 fL (79-100) Mean Corpuscular Hemoglobin 32 pg (25-35) Mean Corpuscular Hemoglobin Concent 36 g/dL (31-37) Red Cell Distribution Width 12.7 % (11.5-14.5) Platelet Count 193 x10^3/uL (140-400) Neutrophils (%) (Auto) 62 % (31-73) Lymphocytes (%) (Auto) 21 % (24-48) Monocytes (%) (Auto) 10 % (0-9) Eosinophils (%) (Auto) 7 % (0-3) Basophils (%) (Auto) 1 % (0-3) Neutrophils # (Auto) 5.0 x10^3uL (1.8-7.7) Lymphocytes # (Auto) 1.6 x10^3/uL (1.0-4.8) Monocytes # (Auto) 0.8 x10^3/uL (0.0-1.1) Eosinophils # (Auto) 0.5 x10^3/uL (0.0-0.7) Basophils # (Auto) 0.1 x10^3/uL (0.0-0.2) Heparin Anti-Xa Act, Unfractionated 0.33 IU/mL (0.30-0.70) Sodium Level 143 mmol/L (136-145) Potassium Level 3.0 mmol/L (3.5-5.1) Chloride Level 104 mmol/L (98-107) Carbon Dioxide Level 30 mmol/L (21-32) Anion Gap 9 (6-14) Blood Urea Nitrogen 21 mg/dL (8-26) Creatinine 1.4 mg/dL (0.7-1.3) Estimated GFR (Cockcroft-Gault) 49.4 BUN/Creatinine Ratio 15 (6-20) Glucose Level 131 mg/dL (70-99) Calcium Level 8.9 mg/dL (8.5-10.1) Total Bilirubin 1.4 mg/dL (0.2-1.0) Aspartate Amino Transf (AST/SGOT) 16 U/L (15-37) Alanine Aminotransferase (ALT/SGPT) 25 U/L (16-63) Alkaline Phosphatase 58 U/L (46-116) Total Protein 7.1 g/dL (6.4-8.2) Albumin 4.2 g/dL (3.4-5.0) Albumin/Globulin Ratio 1.4 (1.0-1.7) Laboratory Tests Test 11/22/16 18:28 11/22/16 18:32 11/22/16 18:41 11/23/16 00:45 White Blood Count 11.5 x10^3/uL (4.0-11.0) Red Blood Count 4.79 x10^6/uL (4.30-5.70) Hemoglobin 15.1 g/dL (13.0-17.5) Hematocrit 44.0 % (39.0-53.0) Mean Corpuscular Volume 92 fL (79-100) Mean Corpuscular Hemoglobin 32 pg (25-35) Mean Corpuscular Hemoglobin Concent 34 g/dL (31-37) Red Cell Distribution Width 13.2 % (11.5-14.5) Platelet Count 235 x10^3/uL (140-400) Neutrophils (%) (Auto) 60 % (31-73) Lymphocytes (%) (Auto) 23 % (24-48) Monocytes (%) (Auto) 11 % (0-9) Eosinophils (%) (Auto) 6 % (0-3) Basophils (%) (Auto) 1 % (0-3) Neutrophils # (Auto) 6.8 x10^3uL (1.8-7.7) Lymphocytes # (Auto) 2.6 x10^3/uL (1.0-4.8) Monocytes # (Auto) 1.2 x10^3/uL (0.0-1.1) Eosinophils # (Auto) 0.7 x10^3/uL (0.0-0.7) Basophils # (Auto) 0.1 x10^3/uL (0.0-0.2) Sodium Level 144 mmol/L (136-145) Potassium Level 3.4 mmol/L (3.5-5.1) Chloride Level 103 mmol/L (98-107) Carbon Dioxide Level 31 mmol/L (21-32) Anion Gap 10 (6-14) 16 mmol/L (6-14) Blood Urea Nitrogen 30 mg/dL (8-26) Creatinine 1.8 mg/dL (0.7-1.3) Estimated GFR (Cockcroft-Gault) 37.0 BUN/Creatinine Ratio 17 (6-20) Glucose Level 145 mg/dL (70-99) 145 mg/dL (70-99) Calcium Level 9.0 mg/dL (8.5-10.1) Magnesium Level 2.6 mg/dL (1.8-2.4) Total Bilirubin 1.1 mg/dL (0.2-1.0) Aspartate Amino Transf (AST/SGOT) 17 U/L (15-37) Alanine Aminotransferase (ALT/SGPT) 26 U/L (16-63) Alkaline Phosphatase 62 U/L (46-116) Total Protein 7.3 g/dL (6.4-8.2) Albumin 4.3 g/dL (3.4-5.0) Albumin/Globulin Ratio 1.4 (1.0-1.7) Bedside Troponin I 0.00 ng/ml (<0.08) Bedside Hemoglobin 14.6 g/dL (14-18) Bedside Hematocrit 43 % (37-52) Bedside Sodium 140 mmol/L (135-145) Bedside Potassium 3.5 mmol/L (3.5-5.0) Bedside Chloride 101 mmol/L (98-110) Bedside Total CO2 27 mmol/L (23-32) Bedside Blood Urea Nitrogen 29 mg/dL (8-26) Bedside Creatinine 1.7 mg/dL (0.5-1.4) Bedside Ionized Calcium (Jovani) 1.10 mmol/L (1.13-1.32) Heparin Anti-Xa Act, Unfractionated 0.21 IU/mL (0.30-0.70) Troponin I Quantitative < 0.017 ng/mL (0.000-0.055) Test 11/23/16 06:11 White Blood Count 8.0 x10^3/uL (4.0-11.0) Red Blood Count 4.80 x10^6/uL (4.30-5.70) Hemoglobin 15.4 g/dL (13.0-17.5) Hematocrit 43.3 % (39.0-53.0) Mean Corpuscular Volume 90 fL (79-100) Mean Corpuscular Hemoglobin 32 pg (25-35) Mean Corpuscular Hemoglobin Concent 36 g/dL (31-37) Red Cell Distribution Width 12.7 % (11.5-14.5) Platelet Count 193 x10^3/uL (140-400) Neutrophils (%) (Auto) 62 % (31-73) Lymphocytes (%) (Auto) 21 % (24-48) Monocytes (%) (Auto) 10 % (0-9) Eosinophils (%) (Auto) 7 % (0-3) Basophils (%) (Auto) 1 % (0-3) Neutrophils # (Auto) 5.0 x10^3uL (1.8-7.7) Lymphocytes # (Auto) 1.6 x10^3/uL (1.0-4.8) Monocytes # (Auto) 0.8 x10^3/uL (0.0-1.1) Eosinophils # (Auto) 0.5 x10^3/uL (0.0-0.7) Basophils # (Auto) 0.1 x10^3/uL (0.0-0.2) Heparin Anti-Xa Act, Unfractionated 0.33 IU/mL (0.30-0.70) Sodium Level 143 mmol/L (136-145) Potassium Level 3.0 mmol/L (3.5-5.1) Chloride Level 104 mmol/L (98-107) Carbon Dioxide Level 30 mmol/L (21-32) Anion Gap 9 (6-14) Blood Urea Nitrogen 21 mg/dL (8-26) Creatinine 1.4 mg/dL (0.7-1.3) Estimated GFR (Cockcroft-Gault) 49.4 BUN/Creatinine Ratio 15 (6-20) Glucose Level 131 mg/dL (70-99) Calcium Level 8.9 mg/dL (8.5-10.1) Total Bilirubin 1.4 mg/dL (0.2-1.0) Aspartate Amino Transf (AST/SGOT) 16 U/L (15-37) Alanine Aminotransferase (ALT/SGPT) 25 U/L (16-63) Alkaline Phosphatase 58 U/L (46-116) Total Protein 7.1 g/dL (6.4-8.2) Albumin 4.2 g/dL (3.4-5.0) Albumin/Globulin Ratio 1.4 (1.0-1.7) VTE Prophylaxis Ordered VTE Prophylaxis Devices: Yes VTE Pharmacological Prophylaxi: No JEAN HOOVER MD Nov 23, 2016 11:45
[2016-11-23] MEDS: HEPARIN 25,000UTS/500ML PREMIX 500 ML IV PRN (11:54)
[2016-11-23] MEDS: POTASSIUM CHLORIDE 20 MEQ TABLET.ER. PO SCH ×2 (11:54→16:44)
[2016-11-23] MEDS: BUDESONIDE 0.5 MG/2 ML NEBU. NEB SCH ×2 (12:00→19:41)
[2016-11-23] MEDS ORDERED: ALBUTEROL SULFATE 2.5 MG/3 ML NEBU. NEB SCH ×2 (12:00)
--- NOTE | 2016-11-23 12:18 | EKG ---
[facility] [address] [place] [address] Test Date: 2016-11-22 Test Time: 18:26:22 Pat Name: PILAR REYES Department: Room: 110 1 Gender: M Zipper Setter: : 1940 Requested By: EMA LANDRY Order Number: [id number] Reading MD: Adithya Alba Measurements Intervals [place] Rate: 179 P: SC: QRS: 128 QRSD: 166 T: -53 QT: 286 QTc: 502 Interpretive Statements IRREGULAR WIDE COMPLEX TACHYCARDIA RI6.01 Unconfirmed report No previous ECG available for comparison Electronically Signed On 11-25-2016 10:46:19 CDT by Adithya Alba
--- NOTE | 2016-11-23 12:49 | EKG ---
[facility] [address] [place] [address] Test Date: 2016-11-22 Test Time: 18:43:26 Pat Name: PILAR REYES Department: Room: 110 1 Gender: M Welt Treater: : 1940 Requested By: JEAN HOOVER Order Number: [id number] Reading MD: Adithya Alba Measurements Intervals [place] Rate: 95 P: -17 NE: 190 QRS: -39 QRSD: 112 T: 46 QT: 356 QTc: 451 Interpretive Statements SINUS RHYTHM COMPLEX(ES) WITH ABERRANT INTRAVENTRICULAR CONDUCTION VENTRICULAR PREMATURE COMPLEX(ES) ABNORMAL LEFT AXIS DEVIATION LEFT ANTERIOR FASCICULAR BLOCK LVH WITH REPOLARIZATION ABNORMALITY QRS(T) CONTOUR ABNORMALITY CONSIDER ANTEROSEPTAL MYOCARDIAL DAMAGE RI6.01 Unconfirmed report No previous ECG available for comparison Electronically Signed On 11-25-2016 10:46:26 CDT by Adithya Alba
[2016-11-23 13:09] LABS: CHOLESTEROL/HDL RATIO 2.6
[2016-11-23] MEDS: ASPIRIN ENTERIC COATED 81 MG TABLET.DR. PO SCH (13:30)
[2016-11-23] MEDS: ANTI-COAG MONITOR BY PHARMACY. MC PRN (17:04)
[2016-11-23] MEDS: AMIODARONE HCL 200 MG TABLET. PO SCH (17:43)
--- NOTE | 2016-11-23 19:30 | HP ---
ADMIT DATE: 11/23/2016 CHIEF COMPLAINT: Chest pain, palpitations. HISTORY OF THE PRESENT ILLNESS: A 76-year-old male patient with prior history of hypertension, hyperlipidemia, and aortic insufficiency who presented to the ER with complaints of palpitations and chest pain. The patient has intermittent palpitations from yesterday and at the time of his arrival to the ER initially they thought he was in ventricular tachycardia and started him on amiodarone. However, the patient did not improve. Later, he was placed on Cardizem, and symptoms improved. The patient also has some intermittent chest pain which has been radiating to the neck region, and he had a history of ascending aortic aneurism which has been stable condition. He is getting repeated CAT scans every few months. At the time of my examination, the patient is resting comfortably in the Intensive Care Unit. He denies any symptoms. However, he is noticing some palpitations. PAST MEDICAL HISTORY: Hypertension, hyperlipidemia, asthma, pneumonia, aortic insufficiency, GERD, type 2 diabetes mellitus, and chronic renal insufficiency. PAST SURGICAL HISTORY: Cholecystectomy. FAMILY HISTORY: Coronary artery disease. SOCIAL HISTORY: He smokes 1 cigar per day. Alcohol occasionally. Lives with the family. REVIEW OF SYSTEMS: Please see my electronic H and P. PHYSICAL EXAMINATION: Please see my electronic H and P. ALLERGIES: APPLE, MONOSODIUM GLUTAMATE. LABORATORY FINDINGS: CBC: WBC 11.5, hemoglobin is 15.1, MCV is 92, and platelets 235. Chemistry: Sodium 143, potassium 3.0, chloride is 104, anion gap is 9, BUN is 21, creatinine is 1.4, glucose 131, GFR is 49.4, and troponin is less than 0.017. Coagulation Panel: Heparin 0.21, 0.33. IMAGING STUDIES: Chest x-ray with moderate cardiomegaly. EKG: Personally reviewed. Atrial fibrillation with RVR. ASSESSMENT AND PLAN: 1. Chest pain, need to rule out acute coronary syndrome. 2. Atrial fibrillation with rapid ventricular response present on admission. 3. Hypertension. 4. Acute kidney injury and chronic kidney disease. PLAN: He has been placed on Critical Care Unit, and currently he is on Cardizem drip at 5 mg. His rate has been controlled, and also he has been on heparin for ACS protocol. Cardiology has been consulted. Three more sets of troponins have been ordered. Possible cardiac catheterization on Friday. I will order echocardiogram to monitor LV ejection fraction. Discussed with Cardiology, and we are holding his Metformin at this time. Cardiology ordering renal ultrasound. Sliding scale insulin for hyperglycemia. Plan explained to the patient and his daughter and his at bedside. All questions were answered. Mild iv Hydration for JENNIFER JEAN HOOVER MD DR: BILLY/erin JOB#: [id number] / [id number] FRANCES
[2016-11-23] MEDS: ALBUTEROL SULFATE 2.5 MG/3 ML NEBU. NEB SCH ×2 (19:41→21:00)
[2016-11-23] MEDS: ATORVASTATIN CALCIUM 10 MG TABLET. PO SCH (20:59)
[2016-11-24] MEDS: HEPARIN 25,000UTS/500ML PREMIX 500 ML IV PRN ×2 (01:37→17:56)
[2016-11-24 03:42] VITALS: BP 152/91
[2016-11-24 04:20] LABS: BASO # 0.1 x10^3/uL (0.0-0.2); BASO % 1 % (0-3); EOS % 5 % (0-3); HEMOGLOBIN 14.9 g/dL (13.0-17.5); LYMPH # 1.8 x10^3/uL (1.0-4.8); LYMPH % 20 % (24-48); MEAN CORPUSCULAR HEMOGLOBIN 32 pg (25-35); MEAN CORPUSCULAR HGB CONC 35 g/dL (31-37); MEAN CORPUSCULAR VOLUME 91 fL (79-100); MONO % 11 % (0-9); NEUT % 62 % (31-73); PLATELET COUNT 178 x10^3/uL (140-400); RED CELL DISTRIBUTION WIDTH 13.3 % (11.5-14.5); WHITE BLOOD COUNT 9.1 x10^3/uL (4.0-11.0)
[2016-11-24 04:32] LABS: CALCIUM 8.5 mg/dL (8.5-10.1); CREATININE 1.4 mg/dL (0.7-1.3); GFR 49.4
[2016-11-24 04:41] LABS: POTASSIUM 2.9 mmol/L (3.5-5.1)
[2016-11-24] MEDS: POTASSIUM CHLORIDE 20 MEQ TABLET.ER. PO SCH (05:20)
[2016-11-24] MEDS ORDERED: POTASSIUM CHLORIDE 20 MEQ TABLET.ER. PO ONE ×3 (05:30→18:00)
[2016-11-24 07:10] VITALS: BP 158/81
[2016-11-24] MEDS: ALBUTEROL SULFATE 2.5 MG/3 ML NEBU. NEB SCH ×4 (07:44→19:33)
[2016-11-24] MEDS: BUDESONIDE 0.5 MG/2 ML NEBU. NEB SCH ×2 (07:44→19:33)
[2016-11-24] MEDS ORDERED: FLUTICASONE 50MCG/NASAL SPRAY 16GM BOTTLE. NS PRN (09:00)
[2016-11-24] MEDS: ASPIRIN ENTERIC COATED 81 MG TABLET.DR. PO SCH (09:00)
[2016-11-24] MEDS: MULTIVITAMIN I-VITE TABLET. PO SCH ×2 (09:01→21:39)
[2016-11-24] MEDS: AMIODARONE HCL 200 MG TABLET. PO SCH (09:02)
--- NOTE | 2016-11-24 09:33 | RAD ---
APPROVED REPORT Patient Location: IN-PATIENT Indications malignant htn Renal Artery Doppler Right Renal Artery Left Renal Arter y Proximal 70.0/12.0 cm/secProximal 46.0/12.0 cm/sec Mid 67.0/14.0 cm/secMid 44.0/10.0 cm/sec Distal 49.0/14.0 cm/secDistal 41.0/12.0 cm/sec Renal/Aorta Ratio 0.00Renal/Aorta Ratio 0.51 Prox. Resistive Index 0.84Prox. Resistive Index 0.75 Mid Resistive Index 0.80Mid Resistive Index 0.78 Distal Resistive Index 0.72Distal Resistive Index 0.69 Rt. Segmental A. 25.0/7.0 cm/secLt. Segmental A. 25.0/9.0 cm/sec Renal Measurements RightLeft Kidney Ketkrx43 cm cmKidney Wpbjdx92 cm cm Right Additional FindingsLeft Additional Findings simple syt superior lt kindey2.7cm. Aortic Doppler VelocityWaveform Proximal Aorta 90.0 cm/sec Findings Puentes scale images of the bilateral kidneys reveal mild hypertrophy with measurements as noted above. There is a 2.7 cm simple cysts noted in the superior aspect of the left kidney. Spectral waveforms and color Doppler study are suboptimal due to body habitus. Nonetheless, velocity profiles are grossly normal and did not reveal any evidence of renal artery stenosis. Critical Notification Critical Value: No <Conclusion> No evidence of renal artery stenosis Simple cyst noted in the superior aspect of the left kidney
[2016-11-24 11:00] VITALS: BP 153/96
[2016-11-24 11:29] LABS: MAGNESIUM 2.2 mg/dL (1.8-2.4); POTASSIUM 3.4 mmol/L (3.5-5.1)
--- NOTE | 2016-11-24 11:35 | PDOC ---
PROGRESS NOTES Subjective Subjective Patient denied any chest pain or shortness of breath today. Denied any palpitations as well. Objective Objective Vital Signs Date Time Temp Pulse Resp B/P (MAP) Pulse Ox O2 Delivery O2 Flow Rate FiO2 11/24/16 11:00 98.3 81 16 153/96 (115) 94 Room Air 98.3 11/23/16 13:00 2.0 Intake and Output 11/24/16 07:00 Intake Total 3009.16 ml Output Total 2050 ml Balance 959.16 ml Intake Oral 2680 ml IV Total 329.16 ml Output Urine Total 2050 ml # Voids 3 # Bowel Movements 1 Physical Exam Abdomen: Soft, No tenderness Heart: Regular rate (SR with intermittent PVCs), Normal S1, Normal S2 Extremities: No cyanosis, Other (trace LE edema) General: Alert, Oriented X3, Cooperative, No acute distress HEENT: Atraumatic, Mucous membr. moist/pink Lungs: Clear to auscultation MUSCULOSKELETAL: No joint tenderness Neuro: Normal speech, Sensation intact Psych/Mental Status: Mental status NL, Mood NL Skin: No breakdown, No significant lesion Assessment Assessment 1. Chest pain: Some typical features. Myocardial infarction ruled out. Telemetry showed two episodes of NSVT. Plan for cardiac catheterization and possible angioplasty tomorrow. Risks and benefits were explained. 2. Atrial fibrillation, new onset. Patient is presently back in sinus rhythm. Continue current medications including diltiazem and amiodarone. We will change heparin to eliquis after cardiac catheterization. 3. JENNIFER on CKD: likely stage 3. Improved 4. Malignant HTN: multiple antiHTN. Continue to titrate antihypertensives for better blood pressure control. Renal arterial duplex scan did not show any significant renal artery stenosis. 5. Hypokalemia: replaced 6. DM2/HLP: . Per IM Plan Plan of Care Problems Medical Problems: (1) Atrial fibrillation with RVR Status: Acute Comment Review of Relevant I have reviewed the following items darrell (where applicable) has been applied. Labs Laboratory Tests Test 11/23/16 12:35 11/24/16 03:30 11/24/16 11:03 Heparin Anti-Xa Act, Unfractionated 0.43 IU/mL (0.30-0.70) 0.44 IU/mL (0.30-0.70) Troponin I Quantitative < 0.017 ng/mL (0.000-0.055) Triglycerides Level 118 mg/dL (0-150) Cholesterol Level 113 mg/dL (0-200) LDL Cholesterol, Calculated 45 mg/dL (0-100) VLDL Cholesterol, Calculated 24 mg/dL (0-40) Non-HDL Cholesterol Calculated 69 mg/dL (0-129) HDL Cholesterol 44 mg/dL (40-60) Cholesterol/HDL Ratio 2.6 Thyroid Stimulating Hormone (TSH) 1.820 uIU/mL (0.358-3.74) White Blood Count 9.1 x10^3/uL (4.0-11.0) Red Blood Count 4.70 x10^6/uL (4.30-5.70) Hemoglobin 14.9 g/dL (13.0-17.5) Hematocrit 43.0 % (39.0-53.0) Mean Corpuscular Volume 91 fL (79-100) Mean Corpuscular Hemoglobin 32 pg (25-35) Mean Corpuscular Hemoglobin Concent 35 g/dL (31-37) Red Cell Distribution Width 13.3 % (11.5-14.5) Platelet Count 178 x10^3/uL (140-400) Neutrophils (%) (Auto) 62 % (31-73) Lymphocytes (%) (Auto) 20 % (24-48) Monocytes (%) (Auto) 11 % (0-9) Eosinophils (%) (Auto) 5 % (0-3) Basophils (%) (Auto) 1 % (0-3) Neutrophils # (Auto) 5.6 x10^3uL (1.8-7.7) Lymphocytes # (Auto) 1.8 x10^3/uL (1.0-4.8) Monocytes # (Auto) 1.0 x10^3/uL (0.0-1.1) Eosinophils # (Auto) 0.5 x10^3/uL (0.0-0.7) Basophils # (Auto) 0.1 x10^3/uL (0.0-0.2) Sodium Level 143 mmol/L (136-145) Potassium Level 2.9 mmol/L (3.5-5.1) 3.4 mmol/L (3.5-5.1) Chloride Level 105 mmol/L (98-107) Carbon Dioxide Level 30 mmol/L (21-32) Anion Gap 8 (6-14) Blood Urea Nitrogen 18 mg/dL (8-26) Creatinine 1.4 mg/dL (0.7-1.3) Estimated GFR (Cockcroft-Gault) 49.4 Glucose Level 124 mg/dL (70-99) Calcium Level 8.5 mg/dL (8.5-10.1) Magnesium Level 2.2 mg/dL (1.8-2.4) Medications Current Medications Albuterol Sulfate (Ventolin Neb Soln) 2.5 mg Q6HRS NEB ; Start 11/23/16 at 12:00 ; Stop 11/23/16 at 12:39; Status DC Albuterol Sulfate (Ventolin Neb Soln) 2.5 mg Q6HRS NEB ; Start 11/23/16 at 12:00 ; Status Cancel Albuterol Sulfate (Ventolin Neb Soln) 2.5 mg QID NEB Last administered on 07:44; Start 11/23/16 at 17:00 Amiodarone HCl (Cordarone) 200 mg DAILY PO Last administered on 11/24/16 09:02 ; Start 11/23/16 at 12:00 Aspirin (Ecotrin) 81 mg DAILYWBKFT PO Last administered on 11/24/16 09:00; Start 11/23/16 at 12:00 Budesonide (Pulmicort) 0.5 mg BID NEB Last administered on 11/24/16 07:44; Start 11/23/16 at 12:00 Diltiazem HCl (Cardizem 24hr Cd) 120 mg DAILY PO Last administered on 09:01; Start 11/23/16 at 12:00 Fluticasone Propionate (Flonase) 2 spray PRN DAILY PRN NS ALLERGIES; Start at 09:00 Hydralazine HCl (Apresoline) 10 mg PRN Q4HRS PRN IVP ELEVATED BP, SEE COMMENTS ; Start 11/23/16 at 12:00 Info (Anti-Coagulation Monitoring By Pharmacy) 1 each PRN DAILY PRN MC SEE COMMENTS Last administered on 11/23/16 17:04; Start 11/23/16 at 17:15 Potassium Chloride (Klor-Con) 20 meq DAILYWBKFT PO ; Start 11/24/16 at 08:00 Potassium Chloride (Klor-Con) 40 meq 1X ONCE PO Last administered on 05:39; Start 11/24/16 at 05:30; Stop 11/24/16 at 05:31; Status DC Potassium Chloride (Klor-Con) 40 meq 1X ONCE PO Last administered on 09:01; Start 11/24/16 at 09:30; Stop 11/24/16 at 09:31; Status DC Potassium Chloride (Klor-Con) 40 meq BID94 PO Last administered on 11/23/16t 16 :44; Start 11/23/16 at 11:45; Stop 11/23/16 at 17:29; Status DC Vitals/I & O Vital Sign - Last 24 Hours 11/23/16 11/23/16 11/23/16 11/23/16 12:00 13:00 13:31 13:31 Pulse 74 76 77 79 Resp 22 29 B/P (MAP) 157/84 (108) 142/80 (100) 142/80 142/80 Pulse Ox 97 95 O2 Delivery Nasal Cannula Nasal Cannula O2 Flow Rate 2.0 2.0 11/23/16 11/23/16 11/23/16 11/23/16 15:10 15:17 15:20 17:43 Temp 97.9 97.9 Pulse 80 80 Resp 22 B/P (MAP) 145/83 (103) Pulse Ox 94 O2 Delivery Room Air Room Air Room Air 11/23/16 11/23/16 11/23/16 11/23/16 19:23 19:43 20:13 21:00 Temp 98.7 98.7 Pulse 81 81 Resp 20 B/P (MAP) 154/89 (110) 154/89 Pulse Ox 94 97 O2 Delivery Room Air Room Air Room Air 11/23/16 11/24/16 11/24/16 11/24/16 23:55 03:42 07:10 07:46 Temp 98.6 98.3 97.7 98.6 98.3 97.7 Pulse 79 67 77 Resp 18 20 16 B/P (MAP) 138/88 (105) 152/91 (111) 158/81 (106) Pulse Ox 96 91 92 92 O2 Delivery Room Air Room Air Room Air Room Air 11/24/16 11/24/16 11/24/16 11/24/16 08:10 09:01 09:01 09:02 Pulse 77 77 77 B/P (MAP) 158/81 158/81 O2 Delivery Room Air 11/24/16 11:00 Temp 98.3 98.3 Pulse 81 Resp 16 B/P (MAP) 153/96 (115) Pulse Ox 94 O2 Delivery Room Air Intake and Output 11/23/16 11/23/16 11/24/16 15:00 23:00 07:00 Intake Total 1430 ml 850 ml 729.16 ml Output Total 950 ml 1100 ml Balance 480 ml 850 ml -370.84 ml ELLIOTT KNIGHT MD Nov 24, 2016 11:35
--- NOTE | 2016-11-24 12:40 | EKG ---
[facility] [address] [place] [address] Test Date: 2016-11-23 Test Time: 12:24:11 Pat Name: PILAR REYES Department: Room: 207 Gender: M Sports Medicine Specialist: : [id number] Requested By: JEAN HOOVER Order Number: [id number] Reading MD: Adithay Alba Measurements Intervals [place] Rate: 75 P: -6 KS: 188 QRS: -42 QRSD: 116 T: 27 QT: 446 QTc: 501 Interpretive Statements SINUS RHYTHM VENTRICULAR PREMATURE COMPLEX(ES), TRIGEMINY ABNORMAL LEFT AXIS DEVIATION LEFT ANTERIOR FASCICULAR BLOCK LVH WITH REPOLARIZATION ABNORMALITY PROLONGED QT ABNORMAL ECG RI6.01 No previous ECG available for comparison Electronically Signed On 11-25-2016 10:53:45 CDT by Adithya Alba
--- NOTE | 2016-11-24 13:36 | PDOC ---
PROGRESS NOTES Chief Complaint Chief Complaint cc: chest pain A/P 1. Chest pain, possible CAD: left heart catheterization on Friday, on heparin gtt acs protocol. 2. Atrial fibrillation with rapid ventricular response present on admission.: on heparin gtt, amiodarone, 3. Hypertension. stable. 4. Acute kidney injury and chronic kidney disease.: on iv hydration, monitor K , hold metformin 5. Hypokalemia: replaced, 6. DM2: SSI. Vitals Vitals Vital Signs Date Time Temp Pulse Resp B/P (MAP) Pulse Ox O2 Delivery O2 Flow Rate FiO2 11/24/16 11:40 Room Air 11/24/16 11:00 98.3 81 16 153/96 (115) 94 98.3 11/23/16 13:00 2.0 Physical Exam General: Alert, Oriented X3, Cooperative, No acute distress Heart: Regular rate (SR with intermittent PVCs), Normal S1, Normal S2 Abdomen: Soft, No tenderness Extremities: No cyanosis, Other (trace LE edema) Skin: No breakdown, No significant lesion Labs LABS Laboratory Tests Test 11/24/16 03:30 11/24/16 11:03 White Blood Count 9.1 x10^3/uL (4.0-11.0) Red Blood Count 4.70 x10^6/uL (4.30-5.70) Hemoglobin 14.9 g/dL (13.0-17.5) Hematocrit 43.0 % (39.0-53.0) Mean Corpuscular Volume 91 fL (79-100) Mean Corpuscular Hemoglobin 32 pg (25-35) Mean Corpuscular Hemoglobin Concent 35 g/dL (31-37) Red Cell Distribution Width 13.3 % (11.5-14.5) Platelet Count 178 x10^3/uL (140-400) Neutrophils (%) (Auto) 62 % (31-73) Lymphocytes (%) (Auto) 20 % (24-48) Monocytes (%) (Auto) 11 % (0-9) Eosinophils (%) (Auto) 5 % (0-3) Basophils (%) (Auto) 1 % (0-3) Neutrophils # (Auto) 5.6 x10^3uL (1.8-7.7) Lymphocytes # (Auto) 1.8 x10^3/uL (1.0-4.8) Monocytes # (Auto) 1.0 x10^3/uL (0.0-1.1) Eosinophils # (Auto) 0.5 x10^3/uL (0.0-0.7) Basophils # (Auto) 0.1 x10^3/uL (0.0-0.2) Heparin Anti-Xa Act, Unfractionated 0.44 IU/mL (0.30-0.70) Sodium Level 143 mmol/L (136-145) Potassium Level 2.9 mmol/L (3.5-5.1) 3.4 mmol/L (3.5-5.1) Chloride Level 105 mmol/L (98-107) Carbon Dioxide Level 30 mmol/L (21-32) Anion Gap 8 (6-14) Blood Urea Nitrogen 18 mg/dL (8-26) Creatinine 1.4 mg/dL (0.7-1.3) Estimated GFR (Cockcroft-Gault) 49.4 Glucose Level 124 mg/dL (70-99) Calcium Level 8.5 mg/dL (8.5-10.1) Magnesium Level 2.2 mg/dL (1.8-2.4) Assessment and Plan Assessmemt and Plan Problems Medical Problems: (1) Atrial fibrillation with RVR Status: Acute Problems: Comment Review of Relevant I have reviewed the following items darrell (where applicable) has been applied. Labs Laboratory Tests Test 11/22/16 18:28 11/22/16 18:32 11/22/16 18:41 11/23/16 00:45 White Blood Count 11.5 x10^3/uL (4.0-11.0) Red Blood Count 4.79 x10^6/uL (4.30-5.70) Hemoglobin 15.1 g/dL (13.0-17.5) Hematocrit 44.0 % (39.0-53.0) Mean Corpuscular Volume 92 fL (79-100) Mean Corpuscular Hemoglobin 32 pg (25-35) Mean Corpuscular Hemoglobin Concent 34 g/dL (31-37) Red Cell Distribution Width 13.2 % (11.5-14.5) Platelet Count 235 x10^3/uL (140-400) Neutrophils (%) (Auto) 60 % (31-73) Lymphocytes (%) (Auto) 23 % (24-48) Monocytes (%) (Auto) 11 % (0-9) Eosinophils (%) (Auto) 6 % (0-3) Basophils (%) (Auto) 1 % (0-3) Neutrophils # (Auto) 6.8 x10^3uL (1.8-7.7) Lymphocytes # (Auto) 2.6 x10^3/uL (1.0-4.8) Monocytes # (Auto) 1.2 x10^3/uL (0.0-1.1) Eosinophils # (Auto) 0.7 x10^3/uL (0.0-0.7) Basophils # (Auto) 0.1 x10^3/uL (0.0-0.2) Sodium Level 144 mmol/L (136-145) Potassium Level 3.4 mmol/L (3.5-5.1) Chloride Level 103 mmol/L (98-107) Carbon Dioxide Level 31 mmol/L (21-32) Anion Gap 10 (6-14) 16 mmol/L (6-14) Blood Urea Nitrogen 30 mg/dL (8-26) Creatinine 1.8 mg/dL (0.7-1.3) Estimated GFR (Cockcroft-Gault) 37.0 BUN/Creatinine Ratio 17 (6-20) Glucose Level 145 mg/dL (70-99) 145 mg/dL (70-99) Calcium Level 9.0 mg/dL (8.5-10.1) Magnesium Level 2.6 mg/dL (1.8-2.4) Total Bilirubin 1.1 mg/dL (0.2-1.0) Aspartate Amino Transf (AST/SGOT) 17 U/L (15-37) Alanine Aminotransferase (ALT/SGPT) 26 U/L (16-63) Alkaline Phosphatase 62 U/L (46-116) Total Protein 7.3 g/dL (6.4-8.2) Albumin 4.3 g/dL (3.4-5.0) Albumin/Globulin Ratio 1.4 (1.0-1.7) Bedside Troponin I 0.00 ng/ml (<0.08) Bedside Hemoglobin 14.6 g/dL (14-18) Bedside Hematocrit 43 % (37-52) Bedside Sodium 140 mmol/L (135-145) Bedside Potassium 3.5 mmol/L (3.5-5.0) Bedside Chloride 101 mmol/L (98-110) Bedside Total CO2 27 mmol/L (23-32) Bedside Blood Urea Nitrogen 29 mg/dL (8-26) Bedside Creatinine 1.7 mg/dL (0.5-1.4) Bedside Ionized Calcium (Jovani) 1.10 mmol/L (1.13-1.32) Heparin Anti-Xa Act, Unfractionated 0.21 IU/mL (0.30-0.70) Troponin I Quantitative < 0.017 ng/mL (0.000-0.055) Test 11/23/16 06:11 11/23/16 12:35 11/24/16 03:30 11/24/16 11:03 White Blood Count 8.0 x10^3/uL (4.0-11.0) 9.1 x10^3/uL (4.0-11.0) Red Blood Count 4.80 x10^6/uL (4.30-5.70) 4.70 x10^6/uL (4.30-5.70) Hemoglobin 15.4 g/dL (13.0-17.5) 14.9 g/dL (13.0-17.5) Hematocrit 43.3 % (39.0-53.0) 43.0 % (39.0-53.0) Mean Corpuscular Volume 90 fL (79-100) 91 fL (79-100) Mean Corpuscular Hemoglobin 32 pg (25-35) 32 pg (25-35) Mean Corpuscular Hemoglobin Concent 36 g/dL (31-37) 35 g/dL (31-37) Red Cell Distribution Width 12.7 % (11.5-14.5) 13.3 % (11.5-14.5) Platelet Count 193 x10^3/uL (140-400) 178 x10^3/uL (140-400) Neutrophils (%) (Auto) 62 % (31-73) 62 % (31-73) Lymphocytes (%) (Auto) 21 % (24-48) 20 % (24-48) Monocytes (%) (Auto) 10 % (0-9) 11 % (0-9) Eosinophils (%) (Auto) 7 % (0-3) 5 % (0-3) Basophils (%) (Auto) 1 % (0-3) 1 % (0-3) Neutrophils # (Auto) 5.0 x10^3uL (1.8-7.7) 5.6 x10^3uL (1.8-7.7) Lymphocytes # (Auto) 1.6 x10^3/uL (1.0-4.8) 1.8 x10^3/uL (1.0-4.8) Monocytes # (Auto) 0.8 x10^3/uL (0.0-1.1) 1.0 x10^3/uL (0.0-1.1) Eosinophils # (Auto) 0.5 x10^3/uL (0.0-0.7) 0.5 x10^3/uL (0.0-0.7) Basophils # (Auto) 0.1 x10^3/uL (0.0-0.2) 0.1 x10^3/uL (0.0-0.2) Heparin Anti-Xa Act, Unfractionated 0.33 IU/mL (0.30-0.70) 0.43 IU/mL (0.30-0.70) 0.44 IU/mL (0.30-0.70) Sodium Level 143 mmol/L (136-145) 143 mmol/L (136-145) Potassium Level 3.0 mmol/L (3.5-5.1) 2.9 mmol/L (3.5-5.1) 3.4 mmol/L (3.5-5.1) Chloride Level 104 mmol/L (98-107) 105 mmol/L (98-107) Carbon Dioxide Level 30 mmol/L (21-32) 30 mmol/L (21-32) Anion Gap 9 (6-14) 8 (6-14) Blood Urea Nitrogen 21 mg/dL (8-26) 18 mg/dL (8-26) Creatinine 1.4 mg/dL (0.7-1.3) 1.4 mg/dL (0.7-1.3) Estimated GFR (Cockcroft-Gault) 49.4 49.4 BUN/Creatinine Ratio 15 (6-20) Glucose Level 131 mg/dL (70-99) 124 mg/dL (70-99) Calcium Level 8.9 mg/dL (8.5-10.1) 8.5 mg/dL (8.5-10.1) Total Bilirubin 1.4 mg/dL (0.2-1.0) Aspartate Amino Transf (AST/SGOT) 16 U/L (15-37) Alanine Aminotransferase (ALT/SGPT) 25 U/L (16-63) Alkaline Phosphatase 58 U/L (46-116) Total Protein 7.1 g/dL (6.4-8.2) Albumin 4.2 g/dL (3.4-5.0) Albumin/Globulin Ratio 1.4 (1.0-1.7) Troponin I Quantitative < 0.017 ng/mL (0.000-0.055) Triglycerides Level 118 mg/dL (0-150) Cholesterol Level 113 mg/dL (0-200) LDL Cholesterol, Calculated 45 mg/dL (0-100) VLDL Cholesterol, Calculated 24 mg/dL (0-40) Non-HDL Cholesterol Calculated 69 mg/dL (0-129) HDL Cholesterol 44 mg/dL (40-60) Cholesterol/HDL Ratio 2.6 Thyroid Stimulating Hormone (TSH) 1.820 uIU/mL (0.358-3.74) Magnesium Level 2.2 mg/dL (1.8-2.4) Laboratory Tests Test 11/24/16 03:30 11/24/16 11:03 White Blood Count 9.1 x10^3/uL (4.0-11.0) Red Blood Count 4.70 x10^6/uL (4.30-5.70) Hemoglobin 14.9 g/dL (13.0-17.5) Hematocrit 43.0 % (39.0-53.0) Mean Corpuscular Volume 91 fL (79-100) Mean Corpuscular Hemoglobin 32 pg (25-35) Mean Corpuscular Hemoglobin Concent 35 g/dL (31-37) Red Cell Distribution Width 13.3 % (11.5-14.5) Platelet Count 178 x10^3/uL (140-400) Neutrophils (%) (Auto) 62 % (31-73) Lymphocytes (%) (Auto) 20 % (24-48) Monocytes (%) (Auto) 11 % (0-9) Eosinophils (%) (Auto) 5 % (0-3) Basophils (%) (Auto) 1 % (0-3) Neutrophils # (Auto) 5.6 x10^3uL (1.8-7.7) Lymphocytes # (Auto) 1.8 x10^3/uL (1.0-4.8) Monocytes # (Auto) 1.0 x10^3/uL (0.0-1.1) Eosinophils # (Auto) 0.5 x10^3/uL (0.0-0.7) Basophils # (Auto) 0.1 x10^3/uL (0.0-0.2) Heparin Anti-Xa Act, Unfractionated 0.44 IU/mL (0.30-0.70) Sodium Level 143 mmol/L (136-145) Potassium Level 2.9 mmol/L (3.5-5.1) 3.4 mmol/L (3.5-5.1) Chloride Level 105 mmol/L (98-107) Carbon Dioxide Level 30 mmol/L (21-32) Anion Gap 8 (6-14) Blood Urea Nitrogen 18 mg/dL (8-26) Creatinine 1.4 mg/dL (0.7-1.3) Estimated GFR (Cockcroft-Gault) 49.4 Glucose Level 124 mg/dL (70-99) Calcium Level 8.5 mg/dL (8.5-10.1) Magnesium Level 2.2 mg/dL (1.8-2.4) Medications Current Medications Amiodarone HCl (Cordarone) 150 mg STK-MED ONCE .ROUTE ; Start 11/22/16 at 18:31 ; Stop 11/22/16 at 18:32; Status DC Amiodarone HCl 150 mg/Dextrose 103 ml @ 618 mls/hr 1X ONCE IV Last administered on 11/22/16t 18:50; Start 11/22/16 at 18:45; Stop 11/22/16 at 18:54 ; Status DC Amiodarone HCl 900 mg/Dextrose 518 ml @ 34.53 mls/ hr CONT PRN IV SEE I/O RECORD; Start 11/22/16 at 18:45 Etomidate (Amidate) 20 mg STK-MED ONCE IV ; Start 11/22/16 at 18:34; Stop at 18:35; Status DC Diltiazem HCl (Cardizem) 10 mg 1X ONCE IVP Last administered on 11/22/16 18: 50; Start 11/22/16 at 19:00; Stop 11/22/16 at 19:01; Status DC Diltiazem HCl 125 mg/Dextrose 125 ml @ 0 mls/hr CONT PRN IV SEE I/O RECORD Last administered on 11/23/16 09:58; Start 11/22/16 at 19:00; Stop 11/23/16 at 12:06; Status DC Sodium Chloride 1,000 ml @ 1,000 mls/hr 1X ONCE IV Last administered on 19:11; Start 11/22/16 at 19:15; Stop 11/22/16 at 20:14; Status DC Heparin Sodium/ Dextrose 500 ml @ 0 mls/hr CONT PRN IV SEE I/O RECORD Last administered on 11/24/16 01:37; Start 11/22/16 at 19:15 Heparin Sodium (Porcine) (Heparin Sodium) 2,850 unit PRN Q6HRS PRN IV FOR UFH LEVEL LESS THAN 0.2; Start 11/22/16 at 19:15 Ondansetron HCl (Zofran) 4 mg PRN Q8HRS PRN IV NAUSEA/VOMITING; Start 11/22/16 at 19:15; Stop 11/23/16 at 19:14; Status DC Hydralazine HCl (Apresoline) 50 mg TID PO Last administered on 11/24/16 09:01 ; Start 11/22/16 at 23:00 Atorvastatin Calcium (Lipitor) 5 mg QHS PO Last administered on 11/23/16 20:59 ; Start 11/22/16 at 23:00 Multivitamins/ Minerals (I-Angy) 1 tab BID PO Last administered on 11/24/16 09 :01; Start 11/22/16 at 23:00 Non-Formulary Medication 1 tab QHS PO ; Start 11/22/16 at 21:00; Status UNV Hydralazine HCl (Apresoline) 50 mg 1X ONCE PO ; Start 11/22/16 at 22:00; Stop 11/22/16 at 22:01; Status UNV Acetaminophen (Tylenol) 325 mg PRN Q6HRS PRN PO MILD PAIN / TEMP; Start at 00:15 Acetaminophen/ Hydrocodone Bitart (Lortab 5/325) 1 tab PRN Q6HRS PRN PO MODERATE TO SEVERE PAIN; Start 11/23/16 at 00:15 Hydralazine HCl (Apresoline) 10 mg PRN Q4HRS PRN IVP ELEVATED BP, SEE COMMENTS ; Start 11/23/16 at 00:15 Ondansetron HCl (Zofran) 4 mg PRN Q8HRS PRN IV NAUSEA/VOMITING; Start 11/23/16 at 00:15 Albuterol Sulfate (Ventolin Neb Soln) 2.5 mg PRN Q4HRS PRN NEB SHORTNESS OF BREATH; Start 11/23/16 at 00:15 Albuterol Sulfate (Ventolin Neb Soln) 2.5 mg Q6HRS NEB ; Start 11/23/16 at 12:00 ; Status Cancel Fluticasone Propionate (Flonase) 2 spray PRN DAILY PRN NS ALLERGIES; Start at 09:00 Potassium Chloride (Klor-Con) 20 meq DAILYWBKFT PO ; Start 11/24/16 at 08:00 Potassium Chloride (Klor-Con) 20 meq 1X ONCE PO ; Start 11/23/16 at 11:15; Stop 11/23/16 at 11:16; Status DC Albuterol Sulfate (Ventolin Neb Soln) 2.5 mg Q6HRS NEB ; Start 11/23/16 at 12:00 ; Stop 11/23/16 at 12:39; Status DC Budesonide (Pulmicort) 0.5 mg BID NEB Last administered on 11/24/16 07:44; Start 11/23/16 at 12:00 Potassium Chloride (Klor-Con) 40 meq BID94 PO Last administered on 11/23/16 16 :44; Start 11/23/16 at 11:45; Stop 11/23/16 at 17:29; Status DC Diltiazem HCl (Cardizem 24hr Cd) 120 mg DAILY PO Last administered on 09:01; Start 11/23/16 at 12:00 Amiodarone HCl (Cordarone) 200 mg DAILY PO Last administered on 11/24/16 09:02 ; Start 11/23/16 at 12:00 Aspirin (Ecotrin) 81 mg DAILYWBKFT PO Last administered on 11/24/16 09:00; Start 11/23/16 at 12:00 Hydralazine HCl (Apresoline) 10 mg PRN Q4HRS PRN IVP ELEVATED BP, SEE COMMENTS ; Start 11/23/16 at 12:00 Albuterol Sulfate (Ventolin Neb Soln) 2.5 mg QID NEB Last administered on 11:39; Start 11/23/16 at 17:00 Info (Anti-Coagulation Monitoring By Pharmacy) 1 each PRN DAILY PRN MC SEE COMMENTS Last administered on 11/23/16 17:04; Start 11/23/16 at 17:15 Potassium Chloride (Klor-Con) 40 meq 1X ONCE PO Last administered on 05:39; Start 11/24/16 at 05:30; Stop 11/24/16 at 05:31; Status DC Potassium Chloride (Klor-Con) 40 meq 1X ONCE PO Last administered on 09:01; Start 11/24/16 at 09:30; Stop 11/24/16 at 09:31; Status DC Active Scripts Active Reported Albuterol Sulfate Conc Neb Soln (Albuterol Sulfate) 2.5 Mg/0.5 Ml Vial.neb 1 Vial NEB Q6HRS Fexofenadine Hcl 180 Mg Tablet 1 Tab PO DAILY Glucosamine & Chondroitin Cap (Gluc 2KCL/Chondr/Qi Hy/Hy Ac) 1 Each Capsule 2 Each PO DAILY One Daily Men's Health Tablet (Multivits-Minerals/Fa/Lycopene) 1 Each Tablet 1 Each PO Nasonex (Mometasone Furoate) 17 Gm Welches.pump 2 Welches NS PRN BID PRN Advair 250-50 Diskus (Fluticasone/Salmeterol) 1 Each Disk.w.dev 1 Puff IH BID Metformin Hcl 1,000 Mg Tablet 1,000 Mg PO DAILYWBKFT Atenolol 100 Mg Tablet 1 Tab PO DAILY Potassium Chloride 20 Meq Tablet.er 20 Meq PO DAILY Triamterene-Hctz 37.5-25 Mg Cp (Triamterene/Hydrochlorothiazid) 1 Each Capsule 1 Cap PO DAILY Amlodipine Besylate 10 Mg Tablet 10 Mg PO DAILY Micardis (Telmisartan) 80 Mg Tablet 1 Tab PO DAILY Clonidine Hcl 0.3 Mg Tablet 0.3 Mg PO TID Preservision Areds Softgel (Vit A/Vit C/Vit E/Zinc/Copper) 1 Each Capsule 1 Each PO Pravastatin Sodium 20 Mg Tablet 1 Tab PO QHS Hydralazine Hcl 50 Mg Tablet 1 Tab PO TID Vitals/I & O Vital Sign - Last 24 Hours 11/23/16 11/23/16 11/23/16 11/23/16 15:10 15:17 15:20 17:43 Temp 97.9 97.9 Pulse 80 80 Resp 22 B/P (MAP) 145/83 (103) Pulse Ox 94 O2 Delivery Room Air Room Air Room Air 11/23/16 11/23/16 11/23/16 11/23/16 19:23 19:43 20:13 21:00 Temp 98.7 98.7 Pulse 81 81 Resp 20 B/P (MAP) 154/89 (110) 154/89 Pulse Ox 94 97 O2 Delivery Room Air Room Air Room Air 11/23/16 11/24/16 11/24/16 11/24/16 23:55 03:42 07:10 07:46 Temp 98.6 98.3 97.7 98.6 98.3 97.7 Pulse 79 67 77 Resp 18 20 16 B/P (MAP) 138/88 (105) 152/91 (111) 158/81 (106) Pulse Ox 96 91 92 92 O2 Delivery Room Air Room Air Room Air Room Air 11/24/16 11/24/16 11/24/16 11/24/16 08:10 09:01 09:01 09:02 Pulse 77 77 77 B/P (MAP) 158/81 158/81 O2 Delivery Room Air 11/24/16 11/24/16 11:00 11:40 Temp 98.3 98.3 Pulse 81 Resp 16 B/P (MAP) 153/96 (115) Pulse Ox 94 O2 Delivery Room Air Room Air Intake and Output 11/23/16 11/23/16 11/24/16 15:00 23:00 07:00 Intake Total 1430 ml 850 ml 729.16 ml Output Total 950 ml 1100 ml Balance 480 ml 850 ml -370.84 ml JEAN HOOVER MD 18, 2017 13:36
[2016-11-24] MEDS ORDERED: DEXTROSE 50% 25 GM / 50ML DISP.SYRIN. IV PRN (13:45)
--- NOTE | 2016-11-24 13:56 | CARD ---
APPROVED REPORT EXAM: Two-dimensional and M-mode echocardiogram with Doppler and color Doppler. Other Information Quality : Fair INDICATION Chest Pain Ventricular Tachycardia 2D DIMENSIONS RVDd4.7 (2.9-3.5cm)Left Atrium(2D)5.7 (1.6-4.0cm) IVSd2.4 (0.7-1.1cm)Aortic Root(2D)4.9 (2.0-3.7cm) LVDd5.2 (3.9-5.9cm)LVOT Diameter3.4 (1.8-2.4cm) PWd1.4 (0.7-1.1cm)LVDs3.7 (2.5-4.0cm) FS (%) 30.1 %SV75.4 ml LVEF(%)57.0 (>50%) Aortic Valve AoV Peak Etienne.132.2cm/Jay Peak GR.7.0mmHg AI P 1/2 [id number] TDI Lateral E' P. V6.69cm/sMedial E' P. V7.92cm/s Tricuspid Valve TR P. [id number] [id number] TR Peak Gr.[id number] LEFT VENTRICLE The left ventricle is normal size. There is mild to moderate concentric left ventricular hypertrophy. The left ventricular systolic function is normal. The Ejection Fraction is 55%. Transmitral Doppler flow pattern is Grade I-abnormal relaxation pattern. RIGHT VENTRICLE The right ventricle is mildly dilated. The right ventricular systolic function is normal. ATRIA The left atrium is moderately dilated. The right atrium size is normal. The interatrial septum is int act with no evidence for an atrial septal defect or patent foramen ovale as noted on 2-D or Doppler i maging. AORTIC VALVE The aortic valve is mildly thickened but opens well. Doppler and Color Flow revealed eccentric mild t o moderate aortic regurgitation. There is no significant aortic valvular stenosis. MITRAL VALVE The mitral valve is calcified but opens well. There is no evidence of mitral valve prolapse. There is no mitral valve stenosis. Doppler and Color-flow revealed trace mitral regurgitation. TRICUSPID VALVE The tricuspid valve is normal in structure and function. Doppler and Color Flow revealed trace to mil d tricuspid regurgitation. The PA pressure was estimated at 23 mmHg. There is no tricuspid valve sten osis. PULMONIC VALVE The pulmonic valve is not well visualized. GREAT VESSELS The aortic root is dilated at 4.9 cm. The ascending aorta is not well seen. The IVC was not visualize d. PERICARDIAL EFFUSION There is no evidence of significant pericardial effusion. Critical Notification Critical Value: No <Conclusion> The left ventricular systolic function is normal. The Ejection Fraction is 55%. Transmitral Doppler flow pattern is Grade I-abnormal relaxation pattern. The left atrium is moderately dilated. Mild to moderate aortic regurgitation. Trace mitral regurgitation. Trace to mild tricuspid regurgitation. There is no evidence of significant pericardial effusion.
[2016-11-24 15:00] VITALS: BP 167/96
[2016-11-24] MEDS: ANTI-COAG MONITOR BY PHARMACY. MC PRN (16:00)
[2016-11-24] MEDS: INSULIN ASPART 300 UNITS/3 ML INSULN.PEN SQ SCH (18:05)
[2016-11-24 19:55] VITALS: BP 154/86
[2016-11-24] MEDS: ATORVASTATIN CALCIUM 10 MG TABLET. PO SCH (21:38)
[2016-11-24 22:38] VITALS: BP 124/70
[2016-11-25] VITALS (11 sets, daily range): BP systolic 132–159; BP diastolic 82–95
[2016-11-25 06:27] LABS: CALCIUM 8.5 mg/dL (8.5-10.1); CREATININE 1.4 mg/dL (0.7-1.3); GFR 49.4; POTASSIUM 3.4 mmol/L (3.5-5.1)
[2016-11-25 06:28] LABS: BASO # 0.1 x10^3/uL (0.0-0.2); BASO % 1 % (0-3); EOS % 9 % (0-3); HEMATOCRIT 42.8 % (39.0-53.0); HEMOGLOBIN 15.2 g/dL (13.0-17.5); LYMPH # 1.7 x10^3/uL (1.0-4.8); LYMPH % 20 % (24-48); MEAN CORPUSCULAR HEMOGLOBIN 32 pg (25-35); MEAN CORPUSCULAR HGB CONC 36 g/dL (31-37); MEAN CORPUSCULAR VOLUME 90 fL (79-100); MONO % 11 % (0-9); NEUT % 59 % (31-73); PLATELET COUNT 179 x10^3/uL (140-400); RED BLOOD COUNT 4.76 x10^6/uL (4.30-5.70); RED CELL DISTRIBUTION WIDTH 13.3 % (11.5-14.5); WHITE BLOOD COUNT 8.5 x10^3/uL (4.0-11.0)
[2016-11-25] MEDS: ALBUTEROL SULFATE 2.5 MG/3 ML NEBU. NEB SCH ×4 (07:58→19:24)
[2016-11-25] MEDS: INSULIN ASPART 300 UNITS/3 ML INSULN.PEN SQ SCH ×3 (08:00→17:16)
[2016-11-25] MEDS: BUDESONIDE 0.5 MG/2 ML NEBU. NEB SCH ×2 (08:05→19:24)
[2016-11-25] MEDS: AMIODARONE HCL 200 MG TABLET. PO SCH (09:42)
[2016-11-25] MEDS: POTASSIUM CHLORIDE 20 MEQ TABLET.ER. PO SCH (09:42)
[2016-11-25] MEDS: MULTIVITAMIN I-VITE TABLET. PO SCH ×2 (09:43→21:48)
[2016-11-25] MEDS: ASPIRIN ENTERIC COATED 81 MG TABLET.DR. PO SCH (09:43)
[2016-11-25] MEDS: HEPARIN 25,000UTS/500ML PREMIX 500 ML IV PRN (09:46)
--- NOTE | 2016-11-25 11:27 | PDOC ---
PROGRESS NOTES Chief Complaint Chief Complaint cc: chest pain A/P 1. Chest pain, possible CAD: left heart catheterization today, on heparin gtt acs protocol. 2. Atrial fibrillation with rapid ventricular response present on admission.: on heparin gtt, amiodarone, 3. Hypertension. stable. 4. Acute kidney injury and chronic kidney disease.: on iv hydration, monitor K , hold metformin 5. Hypokalemia: replaced, 6. DM2: SSI. Vitals Vitals Vital Signs Date Time Temp Pulse Resp B/P (MAP) Pulse Ox O2 Delivery O2 Flow Rate FiO2 11/25/16 10:40 97.7 93 20 158/92 (114) 95 Room Air 97.7 Physical Exam General: Alert, Oriented X3, Cooperative, No acute distress Heart: Regular rate (SR with intermittent PVCs), Normal S1, Normal S2 Abdomen: Soft, No tenderness Extremities: No cyanosis, Other (trace LE edema) Skin: No breakdown, No significant lesion Labs LABS Laboratory Tests Test 11/24/16 17:09 11/24/16 20:08 11/25/16 06:00 11/25/16 07:48 Glucose (Fingerstick) 180 mg/dL (70-99) 162 mg/dL (70-99) 139 mg/dL (70-99) White Blood Count 8.5 x10^3/uL (4.0-11.0) Red Blood Count 4.76 x10^6/uL (4.30-5.70) Hemoglobin 15.2 g/dL (13.0-17.5) Hematocrit 42.8 % (39.0-53.0) Mean Corpuscular Volume 90 fL (79-100) Mean Corpuscular Hemoglobin 32 pg (25-35) Mean Corpuscular Hemoglobin Concent 36 g/dL (31-37) Red Cell Distribution Width 13.3 % (11.5-14.5) Platelet Count 179 x10^3/uL (140-400) Neutrophils (%) (Auto) 59 % (31-73) Lymphocytes (%) (Auto) 20 % (24-48) Monocytes (%) (Auto) 11 % (0-9) Eosinophils (%) (Auto) 9 % (0-3) Basophils (%) (Auto) 1 % (0-3) Neutrophils # (Auto) 5.0 x10^3uL (1.8-7.7) Lymphocytes # (Auto) 1.7 x10^3/uL (1.0-4.8) Monocytes # (Auto) 0.9 x10^3/uL (0.0-1.1) Eosinophils # (Auto) 0.8 x10^3/uL (0.0-0.7) Basophils # (Auto) 0.1 x10^3/uL (0.0-0.2) Heparin Anti-Xa Act, Unfractionated 0.40 IU/mL (0.30-0.70) Sodium Level 144 mmol/L (136-145) Potassium Level 3.4 mmol/L (3.5-5.1) Chloride Level 107 mmol/L (98-107) Carbon Dioxide Level 29 mmol/L (21-32) Anion Gap 8 (6-14) Blood Urea Nitrogen 13 mg/dL (8-26) Creatinine 1.4 mg/dL (0.7-1.3) Estimated GFR (Cockcroft-Gault) 49.4 Glucose Level 130 mg/dL (70-99) Calcium Level 8.5 mg/dL (8.5-10.1) Assessment and Plan Assessmemt and Plan Problems Medical Problems: (1) Atrial fibrillation with RVR Status: Acute Problems: Comment Review of Relevant I have reviewed the following items darrell (where applicable) has been applied. Labs Laboratory Tests Test 11/23/16 12:35 11/24/16 03:30 11/24/16 11:03 11/24/16 17:09 Heparin Anti-Xa Act, Unfractionated 0.43 IU/mL (0.30-0.70) 0.44 IU/mL (0.30-0.70) Troponin I Quantitative < 0.017 ng/mL (0.000-0.055) Triglycerides Level 118 mg/dL (0-150) Cholesterol Level 113 mg/dL (0-200) LDL Cholesterol, Calculated 45 mg/dL (0-100) VLDL Cholesterol, Calculated 24 mg/dL (0-40) Non-HDL Cholesterol Calculated 69 mg/dL (0-129) HDL Cholesterol 44 mg/dL (40-60) Cholesterol/HDL Ratio 2.6 Thyroid Stimulating Hormone (TSH) 1.820 uIU/mL (0.358-3.74) White Blood Count 9.1 x10^3/uL (4.0-11.0) Red Blood Count 4.70 x10^6/uL (4.30-5.70) Hemoglobin 14.9 g/dL (13.0-17.5) Hematocrit 43.0 % (39.0-53.0) Mean Corpuscular Volume 91 fL (79-100) Mean Corpuscular Hemoglobin 32 pg (25-35) Mean Corpuscular Hemoglobin Concent 35 g/dL (31-37) Red Cell Distribution Width 13.3 % (11.5-14.5) Platelet Count 178 x10^3/uL (140-400) Neutrophils (%) (Auto) 62 % (31-73) Lymphocytes (%) (Auto) 20 % (24-48) Monocytes (%) (Auto) 11 % (0-9) Eosinophils (%) (Auto) 5 % (0-3) Basophils (%) (Auto) 1 % (0-3) Neutrophils # (Auto) 5.6 x10^3uL (1.8-7.7) Lymphocytes # (Auto) 1.8 x10^3/uL (1.0-4.8) Monocytes # (Auto) 1.0 x10^3/uL (0.0-1.1) Eosinophils # (Auto) 0.5 x10^3/uL (0.0-0.7) Basophils # (Auto) 0.1 x10^3/uL (0.0-0.2) Sodium Level 143 mmol/L (136-145) Potassium Level 2.9 mmol/L (3.5-5.1) 3.4 mmol/L (3.5-5.1) Chloride Level 105 mmol/L (98-107) Carbon Dioxide Level 30 mmol/L (21-32) Anion Gap 8 (6-14) Blood Urea Nitrogen 18 mg/dL (8-26) Creatinine 1.4 mg/dL (0.7-1.3) Estimated GFR (Cockcroft-Gault) 49.4 Glucose Level 124 mg/dL (70-99) Calcium Level 8.5 mg/dL (8.5-10.1) Magnesium Level 2.2 mg/dL (1.8-2.4) Glucose (Fingerstick) 180 mg/dL (70-99) Test 11/24/16 20:08 11/25/16 06:00 11/25/16 07:48 Glucose (Fingerstick) 162 mg/dL (70-99) 139 mg/dL (70-99) White Blood Count 8.5 x10^3/uL (4.0-11.0) Red Blood Count 4.76 x10^6/uL (4.30-5.70) Hemoglobin 15.2 g/dL (13.0-17.5) Hematocrit 42.8 % (39.0-53.0) Mean Corpuscular Volume 90 fL (79-100) Mean Corpuscular Hemoglobin 32 pg (25-35) Mean Corpuscular Hemoglobin Concent 36 g/dL (31-37) Red Cell Distribution Width 13.3 % (11.5-14.5) Platelet Count 179 x10^3/uL (140-400) Neutrophils (%) (Auto) 59 % (31-73) Lymphocytes (%) (Auto) 20 % (24-48) Monocytes (%) (Auto) 11 % (0-9) Eosinophils (%) (Auto) 9 % (0-3) Basophils (%) (Auto) 1 % (0-3) Neutrophils # (Auto) 5.0 x10^3uL (1.8-7.7) Lymphocytes # (Auto) 1.7 x10^3/uL (1.0-4.8) Monocytes # (Auto) 0.9 x10^3/uL (0.0-1.1) Eosinophils # (Auto) 0.8 x10^3/uL (0.0-0.7) Basophils # (Auto) 0.1 x10^3/uL (0.0-0.2) Heparin Anti-Xa Act, Unfractionated 0.40 IU/mL (0.30-0.70) Sodium Level 144 mmol/L (136-145) Potassium Level 3.4 mmol/L (3.5-5.1) Chloride Level 107 mmol/L (98-107) Carbon Dioxide Level 29 mmol/L (21-32) Anion Gap 8 (6-14) Blood Urea Nitrogen 13 mg/dL (8-26) Creatinine 1.4 mg/dL (0.7-1.3) Estimated GFR (Cockcroft-Gault) 49.4 Glucose Level 130 mg/dL (70-99) Calcium Level 8.5 mg/dL (8.5-10.1) Laboratory Tests Test 11/24/16 17:09 11/24/16 20:08 11/25/16 06:00 11/25/16 07:48 Glucose (Fingerstick) 180 mg/dL (70-99) 162 mg/dL (70-99) 139 mg/dL (70-99) White Blood Count 8.5 x10^3/uL (4.0-11.0) Red Blood Count 4.76 x10^6/uL (4.30-5.70) Hemoglobin 15.2 g/dL (13.0-17.5) Hematocrit 42.8 % (39.0-53.0) Mean Corpuscular Volume 90 fL (79-100) Mean Corpuscular Hemoglobin 32 pg (25-35) Mean Corpuscular Hemoglobin Concent 36 g/dL (31-37) Red Cell Distribution Width 13.3 % (11.5-14.5) Platelet Count 179 x10^3/uL (140-400) Neutrophils (%) (Auto) 59 % (31-73) Lymphocytes (%) (Auto) 20 % (24-48) Monocytes (%) (Auto) 11 % (0-9) Eosinophils (%) (Auto) 9 % (0-3) Basophils (%) (Auto) 1 % (0-3) Neutrophils # (Auto) 5.0 x10^3uL (1.8-7.7) Lymphocytes # (Auto) 1.7 x10^3/uL (1.0-4.8) Monocytes # (Auto) 0.9 x10^3/uL (0.0-1.1) Eosinophils # (Auto) 0.8 x10^3/uL (0.0-0.7) Basophils # (Auto) 0.1 x10^3/uL (0.0-0.2) Heparin Anti-Xa Act, Unfractionated 0.40 IU/mL (0.30-0.70) Sodium Level 144 mmol/L (136-145) Potassium Level 3.4 mmol/L (3.5-5.1) Chloride Level 107 mmol/L (98-107) Carbon Dioxide Level 29 mmol/L (21-32) Anion Gap 8 (6-14) Blood Urea Nitrogen 13 mg/dL (8-26) Creatinine 1.4 mg/dL (0.7-1.3) Estimated GFR (Cockcroft-Gault) 49.4 Glucose Level 130 mg/dL (70-99) Calcium Level 8.5 mg/dL (8.5-10.1) Medications Current Medications Amiodarone HCl (Cordarone) 150 mg STK-MED ONCE .ROUTE ; Start 11/22/16 at 18:31 ; Stop 11/22/16 at 18:32; Status DC Amiodarone HCl 150 mg/Dextrose 103 ml @ 618 mls/hr 1X ONCE IV Last administered on 11/22/16 18:50; Start 11/22/16 at 18:45; Stop 11/22/16 at 18:54 ; Status DC Amiodarone HCl 900 mg/Dextrose 518 ml @ 34.53 mls/ hr CONT PRN IV SEE I/O RECORD; Start 11/22/16 at 18:45 Etomidate (Amidate) 20 mg STK-MED ONCE IV ; Start 11/22/16 at 18:34; Stop at 18:35; Status DC Diltiazem HCl (Cardizem) 10 mg 1X ONCE IVP Last administered on 11/22/16 18: 50; Start 11/22/16 at 19:00; Stop 11/22/16 at 19:01; Status DC Diltiazem HCl 125 mg/Dextrose 125 ml @ 0 mls/hr CONT PRN IV SEE I/O RECORD Last administered on 11/23/16 09:58; Start 11/22/16 at 19:00; Stop 11/23/16 at 12:06; Status DC Sodium Chloride 1,000 ml @ 1,000 mls/hr 1X ONCE IV Last administered on 19:11; Start 11/22/16 at 19:15; Stop 11/22/16 at 20:14; Status DC Heparin Sodium/ Dextrose 500 ml @ 0 mls/hr CONT PRN IV SEE I/O RECORD Last administered on 11/25/16 09:46; Start 11/22/16 at 19:15 Heparin Sodium (Porcine) (Heparin Sodium) 2,850 unit PRN Q6HRS PRN IV FOR UFH LEVEL LESS THAN 0.2; Start 11/22/16 at 19:15 Ondansetron HCl (Zofran) 4 mg PRN Q8HRS PRN IV NAUSEA/VOMITING; Start 11/22/16 at 19:15; Stop 11/23/16 at 19:14; Status DC Hydralazine HCl (Apresoline) 50 mg TID PO Last administered on 11/25/16 09:43 ; Start 11/22/16 at 23:00 Atorvastatin Calcium (Lipitor) 5 mg QHS PO Last administered on 11/24/16 21:38 ; Start 11/22/16 at 23:00 Multivitamins/ Minerals (I-Angy) 1 tab BID PO Last administered on 11/25/16 09 :43; Start 11/22/16 at 23:00 Non-Formulary Medication 1 tab QHS PO ; Start 11/22/16 at 21:00; Status UNV Hydralazine HCl (Apresoline) 50 mg 1X ONCE PO ; Start 11/22/16 at 22:00; Stop 11/22/16 at 22:01; Status UNV Acetaminophen (Tylenol) 325 mg PRN Q6HRS PRN PO MILD PAIN / TEMP; Start at 00:15 Acetaminophen/ Hydrocodone Bitart (Lortab 5/325) 1 tab PRN Q6HRS PRN PO MODERATE TO SEVERE PAIN; Start 11/23/16 at 00:15 Hydralazine HCl (Apresoline) 10 mg PRN Q4HRS PRN IVP ELEVATED BP, SEE COMMENTS ; Start 11/23/16 at 00:15; Stop 11/24/16 at 15:58; Status DC Ondansetron HCl (Zofran) 4 mg PRN Q8HRS PRN IV NAUSEA/VOMITING; Start 11/23/16 at 00:15 Albuterol Sulfate (Ventolin Neb Soln) 2.5 mg PRN Q4HRS PRN NEB SHORTNESS OF BREATH; Start 11/23/16 at 00:15 Albuterol Sulfate (Ventolin Neb Soln) 2.5 mg Q6HRS NEB ; Start 11/23/16 at 12:00 ; Status Cancel Fluticasone Propionate (Flonase) 2 spray PRN DAILY PRN NS ALLERGIES; Start at 09:00 Potassium Chloride (Klor-Con) 20 meq DAILYWBKFT PO Last administered on 09:42; Start 11/24/16 at 08:00 Potassium Chloride (Klor-Con) 20 meq 1X ONCE PO ; Start 11/23/16 at 11:15; Stop 11/23/16 at 11:16; Status DC Albuterol Sulfate (Ventolin Neb Soln) 2.5 mg Q6HRS NEB ; Start 11/23/16 at 12:00 ; Stop 11/23/16 at 12:39; Status DC Budesonide (Pulmicort) 0.5 mg BID NEB Last administered on 11/25/16 08:05; Start 11/23/16 at 12:00 Potassium Chloride (Klor-Con) 40 meq BID94 PO Last administered on 11/23/16 16 :44; Start 11/23/16 at 11:45; Stop 11/23/16 at 17:29; Status DC Diltiazem HCl (Cardizem 24hr Cd) 120 mg DAILY PO Last administered on 09:42; Start 11/23/16 at 12:00 Amiodarone HCl (Cordarone) 200 mg DAILY PO Last administered on 11/25/16 09:42 ; Start 11/23/16 at 12:00 Aspirin (Ecotrin) 81 mg DAILYWBKFT PO Last administered on 11/25/16 09:43; Start 11/23/16 at 12:00 Hydralazine HCl (Apresoline) 10 mg PRN Q4HRS PRN IVP ELEVATED BP, SEE COMMENTS ; Start 11/23/16 at 12:00 Albuterol Sulfate (Ventolin Neb Soln) 2.5 mg QID NEB Last administered on 07:58; Start 11/23/16 at 17:00 Info (Anti-Coagulation Monitoring By Pharmacy) 1 each PRN DAILY PRN MC SEE COMMENTS Last administered on 11/24/16 16:00; Start 11/23/16 at 17:15 Potassium Chloride (Klor-Con) 40 meq 1X ONCE PO Last administered on 05:39; Start 11/24/16 at 05:30; Stop 11/24/16 at 05:31; Status DC Potassium Chloride (Klor-Con) 40 meq 1X ONCE PO Last administered on 09:01; Start 11/24/16 at 09:30; Stop 11/24/16 at 09:31; Status DC Insulin Aspart (NovoLOG) 0-7 UNITS TIDWMEALS SQ Last administered on 11/24/16 18:05; Start 11/24/16 at 17:00 Dextrose (Dextrose 50%-Water Syringe) 12.5 gm PRN Q15MIN PRN IV SEE COMMENTS; Start 11/24/16 at 13:45 Potassium Chloride (Klor-Con) 60 meq 1X ONCE PO Last administered on 18:08; Start 11/24/16 at 18:00; Stop 11/24/16 at 18:01; Status DC Active Scripts Active Reported Albuterol Sulfate Conc Neb Soln (Albuterol Sulfate) 2.5 Mg/0.5 Ml Vial.neb 1 Vial NEB Q6HRS Fexofenadine Hcl 180 Mg Tablet 1 Tab PO DAILY Glucosamine & Chondroitin Cap (Gluc 2KCL/Chondr/Qi Hy/Hy Ac) 1 Each Capsule 2 Each PO DAILY One Daily Men's Health Tablet (Multivits-Minerals/Fa/Lycopene) 1 Each Tablet 1 Each PO Nasonex (Mometasone Furoate) 17 Gm [place].pump 2 [place] NS PRN BID PRN Advair 250-50 Diskus (Fluticasone/Salmeterol) 1 Each Disk.w.dev 1 Puff IH BID Metformin Hcl 1,000 Mg Tablet 1,000 Mg PO DAILYWBKFT Atenolol 100 Mg Tablet 1 Tab PO DAILY Potassium Chloride 20 Meq Tablet.er 20 Meq PO DAILY Triamterene-Hctz 37.5-25 Mg Cp (Triamterene/Hydrochlorothiazid) 1 Each Capsule 1 Cap PO DAILY Amlodipine Besylate 10 Mg Tablet 10 Mg PO DAILY Micardis (Telmisartan) 80 Mg Tablet 1 Tab PO DAILY Clonidine Hcl 0.3 Mg Tablet 0.3 Mg PO TID Preservision Areds Softgel (Vit A/Vit C/Vit E/Zinc/Copper) 1 Each Capsule 1 Each PO Pravastatin Sodium 20 Mg Tablet 1 Tab PO QHS Hydralazine Hcl 50 Mg Tablet 1 Tab PO TID Vitals/I & O Vital Sign - Last 24 Hours 11/24/16 11/24/16 11/24/16 11/24/16 11:40 14:40 15:00 19:37 Temp 97.6 97.6 Pulse 77 Resp 16 B/P (MAP) 168/85 167/96 (119) Pulse Ox 94 92 O2 Delivery Room Air Room Air Room Air 11/24/16 11/24/16 11/24/16 11/24/16 19:37 19:55 20:51 21:39 Temp 98.0 98.0 Pulse 81 81 Resp 18 B/P (MAP) 154/86 (108) 154/86 Pulse Ox 92 95 O2 Delivery Room Air Room Air Room Air 11/24/16 11/25/16 11/25/16 11/25/16 22:38 03:25 07:00 08:00 Temp 97.8 98.0 97.9 97.8 98.0 97.9 Pulse 76 73 91 Resp 18 18 18 B/P (MAP) 124/70 (88) 132/82 (99) 158/94 (115) Pulse Ox 94 95 91 O2 Delivery Room Air Room Air Room Air Room Air 11/25/16 11/25/16 11/25/16 11/25/16 08:06 09:42 09:42 09:43 Pulse 91 91 91 B/P (MAP) 158/94 158/94 158/94 Pulse Ox 95 O2 Delivery Room Air 11/25/16 10:40 Temp 97.7 97.7 Pulse 93 Resp 20 B/P (MAP) 158/92 (114) Pulse Ox 95 O2 Delivery Room Air Intake and Output 11/24/16 11/24/16 11/25/16 15:00 23:00 07:00 Intake Total 360 ml 1460 ml 700 ml Output Total 800 ml Balance 360 ml 660 ml 700 ml JEAN HOOVER MD Nov 25, 2016 11:26
[2016-11-25] MEDS ORDERED: IODIXANOL 320 MG/ML 100 ML VIAL. ONE ×2 (12:34→13:59)
[2016-11-25] MEDS ORDERED: LIDOCAINE 2% 20 ML VIAL. ONE (12:34)
[2016-11-25] MEDS ORDERED: VERAPAMIL 5 MG/2 ML VIAL. ONE (13:09)
[2016-11-25] MEDS ORDERED: NITROGLYCERIN 200 MCG/2 ML SYRINGE FOR CATH/VASC LAB. ONE (13:09)
[2016-11-25] MEDS ORDERED: fentaNYL PF VIAL 250 MCG/5 ML VIAL ONE (13:09)
[2016-11-25] MEDS ORDERED: MIDAZOLAM HCL/PF 5 MG/5 ML VIAL. ONE (13:09)
[2016-11-25] MEDS ORDERED: HEPARIN for IV BOLUS 10,000 UNIT/10 ML VIAL. ONE (13:09)
[2016-11-25] MEDS ORDERED: LIDOCAINE 2% 20 ML VIAL. IJ ONE (13:45)
[2016-11-25] MEDS ORDERED: MIDAZOLAM HCL/PF 5 MG/5 ML VIAL. IV ONE (13:45)
[2016-11-25] MEDS ORDERED: IODIXANOL 320 MG/ML 100 ML VIAL. IART ONE (13:45)
[2016-11-25] MEDS ORDERED: CONTRAST GIVEN MC PRN (13:45)
[2016-11-25] MEDS ORDERED: fentaNYL PF VIAL 250 MCG/5 ML VIAL IV ONE (13:45)
--- NOTE | 2016-11-25 14:21 | PDOC ---
MODERATE SEDATION ASSESSMENT RISKS/ALTERNATIVES Risks/Alternatives Risks and alternatives of this type of sedation and procedure discussed with: RISK/ALTERNATIVES: Patient H & P ON CHART H & P H & P on chart and reviewed for co-morbid conditions and appropriate labs. H&P ON CHART: Yes STATUS PREG STATUS ASSESSED: N/A MEDS/ALLERGIES REVIEWED Meds/Allergies Reviewed Medications and Allergies including time and route of recently administered narcotics and sedatives. MEDS/ALLERGIES REVIEWED: Yes ASA RATING ASA RATING: II AIRWAY ASSESSMENT Airway Assessment Airway patency, oral function limitations, presence of caps, crowns, dentures, partials, and ability to extend neck assessed. AIRWAY ASSESSMENT: Yes MALLAMPATI SCORE MALLAMPATI SCORE: II PRE-SEDATION ASSESSMENT PRE-SEDATION ASSESSMENT: Yes ELLIOTT KNIGHT MD Nov 25, 2016 14:21
--- NOTE | 2016-11-25 14:29 | CARD ---
APPROVED REPORT Procedure(s) performed: Left Heart Catheterization, selective coronary angiography and left ventricul ography INDICATION The indication(s) include : unstable angina . PROCEDURE NARRATIVE After explaining the risks, benefits and alternative options, informed consent was obtained from anoop ent. Patient was brought to the cardia [facility]use Collector and his right groin was prepped and draped in the usu al fashion. 20 mL of 2% lidocaine was infiltrated the skin and subcutaneous tissues for local anesthe mounika. Arterial access was obtained in the right common femoral artery and a 6 [place] sheath was insert ed. After initial attempts to engage the left main coronary artery with 6 [place] JL4 catheter was uns uccessful, this was engaged with a 6 [place] JL 5 catheter and selective angiography was performed. Th e right coronary artery was engaged with a 6 [place] AL-1 catheter after initial unsuccessful attempts at engaging this vessel with 6 [place] JR4 and 6 [place] 3 DRC catheters. Finally, 6 [place] pigtail ca theter was used to perform left ventriculography. The same catheter was used to perform root aortogra m. Patient part of the procedure well. Hemostasis was achieved using Perclose suture closure device. There were no immediate complications. FINDINGS 1. Hemodynamics: Left ventricle end-diastolic pressure 7 mmHg. No pullback gradient across the aort ic valve. 2. Left ventriculography: Normal left ventricle systolic function with ejection fraction estimated at 50-55%. No significant mitral regurgitation seen. 3. Aortogram showed moderately dilated aortic root. This is consistent with 2-D echocardiogram showi ng dilated aortic root at 4.9 cm. 4. Coronary angiography: a. The left main coronary artery arose from the left sinus of Valsalva, gave rise to the left anteri or descending and left circumflex arteries and did not show any significant stenosis. b. The left anterior descending artery did not show any significant stenosis. c. The left circumflex artery did not show any significant stenosis. d. The right coronary artery was a large and dominant vessel arising from the right sinus of Valsalv a that did not show any significant stenosis. Conclusion 1. No significant coronary disease 2. Normal left ventricle systolic function with ejection fraction estimated at 50-55% 3. Aortic root dilation - 4.9 cm per 2D echo Recommendations Medical Therapy
[2016-11-25] MEDS ORDERED: IV 1/2 NORMAL SALINE 1,000 ML IV SCH (15:00)
[2016-11-25] MEDS: APIXABAN 5 MG TABLET. PO SCH ×2 (17:08→22:10)
[2016-11-25] MEDS: SPIRONOLACTONE 25 MG TABLET PO SCH (17:08)
[2016-11-25] MEDS ORDERED: SPIR50TA PO (17:51)
[2016-11-25] MEDS ORDERED: AMIO200T2 PO (17:51)
[2016-11-25] MEDS ORDERED: DILT180C2 PO (17:52)
[2016-11-25] MEDS ORDERED: APIX5TAB PO (17:52)
[2016-11-25] MEDS ORDERED: ATOR80TA2 PO (17:54)
[2016-11-25] MEDS ORDERED: HYDR-2869 PO (17:54)
[2016-11-25] MEDS: ATORVASTATIN CALCIUM 10 MG TABLET. PO SCH (21:48)
[2016-11-26 03:30] VITALS: BP 145/88
[2016-11-26 04:32] LABS: BASO # 0.1 x10^3/uL (0.0-0.2); BASO % 1 % (0-3); EOS % 7 % (0-3); HEMATOCRIT 42.3 % (39.0-53.0); HEMOGLOBIN 14.7 g/dL (13.0-17.5); LYMPH # 1.3 x10^3/uL (1.0-4.8); LYMPH % 14 % (24-48); MEAN CORPUSCULAR HEMOGLOBIN 32 pg (25-35); MEAN CORPUSCULAR HGB CONC 35 g/dL (31-37); MEAN CORPUSCULAR VOLUME 92 fL (79-100); MONO % 12 % (0-9); NEUT % 67 % (31-73); PLATELET COUNT 168 x10^3/uL (140-400); RED CELL DISTRIBUTION WIDTH 13.4 % (11.5-14.5); WHITE BLOOD COUNT 9.5 x10^3/uL (4.0-11.0)
[2016-11-26 04:49] LABS: CALCIUM 8.5 mg/dL (8.5-10.1); CREATININE 1.4 mg/dL (0.7-1.3); GFR 49.4; POTASSIUM 3.5 mmol/L (3.5-5.1)
[2016-11-26 07:00] VITALS: BP 171/87
[2016-11-26] MEDS: ALBUTEROL SULFATE 2.5 MG/3 ML NEBU. NEB SCH (07:46)
[2016-11-26] MEDS: BUDESONIDE 0.5 MG/2 ML NEBU. NEB SCH (07:46)
[2016-11-26] MEDS: INSULIN ASPART 300 UNITS/3 ML INSULN.PEN SQ SCH (08:00)
[2016-11-26] MEDS: SPIRONOLACTONE 25 MG TABLET PO SCH (08:38)
[2016-11-26] MEDS: MULTIVITAMIN I-VITE TABLET. PO SCH (08:39)
[2016-11-26 08:41] VITALS: BP 171/87
[2016-11-26] MEDS: AMIODARONE HCL 200 MG TABLET. PO SCH (08:41)
[2016-11-26] MEDS: APIXABAN 5 MG TABLET. PO SCH (08:41)
[2016-11-26] MEDS ORDERED: ANTI-COAG MONITOR BY PHARMACY. MC PRN (10:15)
== END 2016-11-26 10:45 | disposition home or self-care (01) | DRG 286 ==
LOC: ER 18:19 → 1 WEST ICU 19:00 → 2 NORTH 11-23 15:00
PROVIDERS: ADMIT Internal Medicine; ATTEND Internal Medicine
PROC: 4A023N7 Measurement of Cardiac Sampling and Pressure, Left Heart, Percutaneous Approach (ICD-10-PCS; principal; 2016-11-25)
PROC: B2111ZZ Fluoroscopy of Multiple Coronary Arteries using Low Osmolar Contrast (ICD-10-PCS; 2016-11-25)
PROC: B2151ZZ Fluoroscopy of Left Heart using Low Osmolar Contrast (ICD-10-PCS; 2016-11-25)
DX: R07.9 Chest pain, unspecified (principal); N17.0 Acute kidney failure with tubular necrosis; I47.2 Ventricular tachycardia; I77.819 Aortic ectasia, unspecified site; I48.91 Unspecified atrial fibrillation; E11.22 Type 2 diabetes mellitus with diabetic chronic kidney disease; E78.00 Pure hypercholesterolemia, unspecified; E78.5 Hyperlipidemia, unspecified; E87.6 Hypokalemia; F17.210 Nicotine dependence, cigarettes, uncomplicated; I12.9 Hypertensive chronic kidney disease with stage 1 through stage 4 chronic kidney disease, or unspecified chronic kidney disease; I35.1 Nonrheumatic aortic (valve) insufficiency; E11.65 Type 2 diabetes mellitus with hyperglycemia; J45.909 Unspecified asthma, uncomplicated; M19.90 Unspecified osteoarthritis, unspecified site; K21.9 Gastro-esophageal reflux disease without esophagitis; Z82.49 Family history of ischemic heart disease and other diseases of the circulatory system; N18.9 Chronic kidney disease, unspecified; Z87.01 Personal history of pneumonia (recurrent); Z90.49 Acquired absence of other specified parts of digestive tract; Z79.899 Other long term (current) drug therapy; Z88.8 Allergy status to other drugs, medicaments and biological substances; Z91.018 Allergy to other foods
CPT/HCPCS: 36415; 71010; 76770; 80047; 80048; 80053; 80061; 82088; 82962; 83735; 84132; 84244; 84443; 84484; 85027; 85520; 87641; 93005; 93306; 93458; 93567; 94250; 94640; 94760; 96374; 96375; C1769; C1771; C1892; G0269; J0282; J1815; J2250; J3010; J3490; J7030; 99285-25